=== PATIENT | female | born 1945 | race Caucasian/White ===

== ENCOUNTER 2017-09-03 13:31 | Inpatient (IN) | payer OTHER ==
--- NOTE | 2017-09-03 13:40 | EDPHY ---
H & P Stated Complaint: HR 170 during cardiac rehab Time Seen by Provider: 09/03/17 13:40 - Personal History Current Tetanus Diphtheria and Acellular Pertussis (TDAP): Yes Tetanus Vaccine Date: 2006 - Medical/Surgical History Hx Asthma: No Hx Chronic Respiratory Disease: Yes Hx Diabetes: No Hx Cardiac Disease: Yes Hx Renal Disease: No Hx Cirrhosis: No Hx Alcoholism: No Hx HIV/AIDS: No Hx Splenectomy or Spleen Trauma: No Other PMH: medical: microscopic colitis, arthritis, HTN, neuropathy. sugery: hyterectomy BOWEL RESECTION/ r abd hernia/htn - Social History Smoking Status: Heavy smoker Constitutional: Initial Vital Signs Temperature (C) 36.5 C 09/03/17 13:33 Heart Rate 173 H 09/03/17 13:33 Respiratory Rate 18 09/03/17 13:33 Blood Pressure 128/82 H 09/03/17 13:33 O2 Sat (%) 100 09/03/17 13:33 O2 Delivery Mode Nasal Cannula O2 (L/minute) 3 Allergies/Adverse Reactions: No Known Allergies Allergy (Verified 09/03/17 13:33) Home Medications: Medication Instructions Recorded Budesonide [Entocort Ec] 3 mg PO DAILY 09/21/13 Hydroxychloroquine Sulfate 200 mg PO BID 09/21/13 [Plaquenil 200 mg (RX)] Levalbuterol Inhaler [Xopenex Hfa 1 puffs IH BID PRN 09/21/13 Inhaler (RX)] Lisinopril [Zestril 10 mg (RX)] 10 mg PO HS 09/21/13 Meloxicam [Mobic] 15 mg PO DAILY 09/21/13 Multivitamins [Tab-A-Maikol] 1 tab PO DAILY 09/21/13 Tiotropium Inhaler [Spiriva 18 mcg IH DAILY 09/21/13 Inhaler] Hydrocodone/APAP 5/325 [[place] 1 tab PO Q4 PRN 09/25/13 5/325 (RX)] Acetaminophen [Tylenol Tablet] 500 mg PO Q6 PRN 12/12/14 Calcium Carbonate [Oyster Shell 500 mg PO DAILY 12/12/14 Calcium] Cholecalciferol Vit D3 [Vitamin D] 2,000 units PO DAILY 12/12/14 Ipratropium 0.03% Nasal [Atrovent 1 sprays [place] BID 12/12/14 0.03% Nasal] Levalbuterol 0.63 mg [Xopenex 1 vial IH BID 12/12/14 0.63MG Neb] Loperamide HCl [Imodium] 2 mg PO TID PRN 12/12/14 Medical Decision Making - Diagnostics Imaging: I viewed and interpreted images myself ED Course/Re-evaluation: CHIEF COMPLAINT: Rapid heart rate HISTORY OF PRESENT ILLNESS: The patient is a 71 y/o female arriving directly from pulmonary rehab with a heart rate above 170. Her medical history includes rheumatoid arthritis, hypertension, and emphysema. She does not believe she's had a rapid heart rate like this previously. While walking on the treadmill at rehab today they saw her heart rate jump to 170. She reported to rehab staff that she has been feeling poorly for a week, but denies palpitations, chest pain , acute dyspnea, lightheadedness, fever, or other symptoms. REVIEW OF SYSTEMS: A 10 point review of systems was performed and is negative with the exception of the elements mentioned in the history of present illness. PHYSICAL EXAM: HR, BP, O2 Sat, RR. Temp noted General Appearance: Alert, well hydrated, appropriate, and non-toxic appearing. Head: Atraumatic without scalp tenderness or obvious injury Eyes: Pupils equal, round, reactive to light and accommodation, EOMI, no trauma , no injection. Nose: Atraumatic, no rhinorrhea, clear. Throat: Mucus membranes moist. Neck: Supple, nontender, no lymphadenopathy. Respiratory: No retractions, no distress, no wheezes, and no accessory muscle use. Lungs are clear to auscultation bilaterally. Cardiovascular: Irregular rapid rate and rhythm, no murmurs, rubs, or gallops. Good capillary refill all extremities. Gastrointestinal: Abdomen is soft, nontender, non-distended, no masses, no rebound, no guarding, no peritoneal signs. Musculoskeletal: Normal active ROM of all extremities, atraumatic. Chronic venous stasis changes to both lower extremities. Neurological: Alert, appropriate, and interactive. The patient has non-focal cranial nerves, motor, sensory, and cerebellar exam. Skin: No rashes, good turgor, no nodules on palpation. Past medical history: Emphysema - O2 dependent, microscopic colitis, rheumatoid arthritis, hypertension, neuropathy. Past surgical history: Hysterectomy, bowel resection, right abdominal hernia, multiple tongue lesions excised for malignancy Family history: Noncontributory Social history: Prior smoker. Lives in [place]. Retired. DIAGNOSTICS/PROCEDURES/CRITICAL CARE TIME: The 12 lead EKG was interpreted by myself. Mix of rapid atrial fibrillation and atrial flutter. Rate between 140-170. See hard copy and/or "tracemaster" electronic copy for interpretation. Chest x-ray: hyperinflation consistent with COPD DIFFERENTIAL DIAGNOSIS: The differential diagnosis for the patient's narrow complex tachycardia included but was not limited to various causes of sinus tachycardia such as dehydration and medicines, SVT, atrial flutter, atrial fibrillation, pulmonary causes. MEDICAL DECISION MAKING: This is a 71 y/o female with emphysema who presents asymptomatic with a heart rate of 170. She has chronic venous stasis skin changes and rapid, irregular heart rate on exam. She is alert and oriented and normotensive. EKG shows a mix of rapid a-fib and a-flutter. Plan for IV, labs, chest x-ray, and medication treatment with 20mg IV Diltazem bolus followed by 20mg IV drip. Spoke with hospitalist service. Dr. Vyas accepts admission. 1416: Consulted with Dr. 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 Patient's aflutter has slowed to a rate around 80. - Data Points Laboratory Results: Laboratory Results 09/03/17 13:45 09/03/17 13:45 09/03/17 09/03/17 13:45 13:45 WBC 9.55 10^3/uL H 10^3/uL (3.80-9.50) RBC 3.47 10^6/uL L 10^6/uL (4.18-5.33) Hgb 13.2 g/dL g/dL (12.6-16.3) Hct 37.1 % L % (38.0-47.0) MCV 106.9 fL H fL (81.5-99.8) MCH 38.0 pg H pg (27.9-34.1) MCHC 35.6 g/dL g/dL (32.4-36.7) RDW 12.1 % % (11.5-15.2) Plt Count 213 10^3/uL 10^3/uL (150-400) MPV 8.8 fL fL (8.7-11.7) Neut % (Auto) 81.9 % H % (39.3-74.2) Lymph % (Auto) 5.7 % L % (15.0-45.0) [place] % (Auto) 10.1 % % (4.5-13.0) Eos % (Auto) 1.3 % % (0.6-7.6) Baso % (Auto) 0.8 % % (0.3-1.7) Nucleat RBC Rel Count 0.0 % % (0.0-0.2) Absolute Neuts (auto) 7.83 10^3/uL H 10^3/uL (1.70-6.50) Absolute Lymphs (auto) 0.54 10^3/uL L 10^3/uL (1.00-3.00) Absolute Monos (auto) 0.96 10^3/uL H 10^3/uL (0.30-0.80) Absolute Eos (auto) 0.12 10^3/uL 10^3/uL (0.03-0.40) Absolute Basos (auto) 0.08 10^3/uL 10^3/uL (0.02-0.10) Absolute Nucleated RBC 0.00 10^3/uL 10^3/uL (0-0.01) Immature Gran % 0.2 % % (0.0-1.1) Immature Gran # 0.02 10^3/uL 10^3/uL (0.00-0.10) Sodium 128 mEq/L L mEq/L (134-144) Potassium 4.5 mEq/L mEq/L (3.5-5.2) Chloride 91 mEq/L L mEq/L (97-110) Carbon Dioxide 24 mEq/l mEq/l (22-31) Anion Gap 13 mEq/L mEq/L (8-16) BUN 11 mg/dL mg/dL (7-23) Creatinine 0.6 mg/dL mg/dL (0.6-1.0) Estimated GFR > 60 Glucose 98 mg/dL mg/dL (70-100) Calcium 9.5 mg/dL mg/dL (8.5-10.4) Magnesium 1.6 mg/dL mg/dL (1.6-2.3) Troponin I Pending NT-Pro-B Natriuret Pep Pending TSH Pending Medications Given: Discontinued Medications Diltiazem HCl (Cardizem 25 Mg/5 Ml Vial) 20 mg IVP EDNOW ONE Stop: 09/03/17 13:49 Last Admin: 09/03/17 13:53 Dose: 20 mg Diltiazem HCl 125 mg/ Dextrose 125 mls @ 0 mls/hr IV EDNOW ONE; As Directed PRN Reason: Protocol Stop: 09/03/17 13:49 Last Admin: 09/03/17 14:13 Dose: 125 mls Departure - Departure Disposition: [facility] Inpatient Acute Clinical Impression: Rapid atrial fibrillation Condition: Fair Report Scribed for: Donell Hopkins Report Scribed by: Azalea Ramon Date of Report: 09/03/17 Time of Report: 14:00
[2017-09-03] MEDS ORDERED: DILTIAZEM 125 MG in D5W 125 ML IV ONE (13:48)
[2017-09-03] MEDS ORDERED: DILTIAZEM 25 MG/5 ML VIAL IVP ONE (13:48)
--- NOTE | 2017-09-03 13:48 | CPEKG ---
Heart Rate: 135 RR Interval: 444 QRSD Interval: 96 QT Interval: 308 QTC Interval: 462 QRS [place]: 58 T Wave [place]: 73 EKG Severity - ABNORMAL ECG - EKG Impression: ATRIAL FIBRILLATION EKG Impression: ST ELEVATION SUGGESTS PERICARDITIS Electronically Signed By: Donell Hopkins 03-Sep-2017 19:48:46
[2017-09-03 13:58] LABS: % IMMATURE GRANULYOCYTES 0.2 % (0.0-1.1); ABSOLUTE IMMATURE GRANULOCYTES 0.02 10^3/uL (0.00-0.10); ADD DIFF? NO; ADD MORPH? NO; ADD SCAN? NO; ATYPICAL LYMPHOCYTE FLAG 10 (0-99); FRAGMENT RBC FLAG 0 (0-99); HEMATOCRIT 37.1 % (38.0-47.0); HEMOGLOBIN 13.2 g/dL (12.6-16.3); LEFT SHIFT FLG 0 (0-99); LIPEMIA HEMOLYSIS FLAG 90 (0-99); MEAN CELL HEMOGLOBIN CONCENTR. 35.6 g/dL (32.4-36.7); MEAN CELL VOLUME 106.9 fL (81.5-99.8); MEAN PLATELET VOLUME 8.8 fL (8.7-11.7); PLATELET CLUMPS FLAG 0 (0-99); PLATELET COUNT 213 10^3/uL (150-400); RED BLOOD CELL COUNT 3.47 10^6/uL (4.18-5.33); RED CELL DISTRIBUTION WIDTH 12.1 % (11.5-15.2)
[2017-09-03 14:10] LABS: ANION GAP 13 mEq/L (8-16); CALCIUM 9.5 mg/dL (8.5-10.4); CARBON DIOXIDE 24 mEq/l (22-31); CHLORIDE 91 mEq/L (97-110); CREATININE 0.6 mg/dL (0.6-1.0); GLOMERULAR FILTRATION RATE > 60; GLUCOSE 98 mg/dL (70-100); MAGNESIUM 1.6 mg/dL (1.6-2.3); POTASSIUM 4.5 mEq/L (3.5-5.2); SODIUM 128 mEq/L (134-144)
[2017-09-03 14:22] LABS: TROPONIN I 0.168 ng/mL (0.000-0.034)
[2017-09-03] MEDS ORDERED: NS 1,000 ML IV ONE (14:44)
[2017-09-03] MEDS ORDERED: ONDANSETRON DISINTEGRATING 4 MG TAB PO PRN (14:44)
[2017-09-03] MEDS ORDERED: ACETAMINOPHEN 325 MG TAB PO PRN (14:44)
[2017-09-03] MEDS ORDERED: ONDANSETRON 4 MG/2 ML VIAL IVP PRN (14:44)
[2017-09-03] MEDS ORDERED: chlordiazePOXIDE 25 MG CAP PO ONE (14:48)
[2017-09-03] MEDS ORDERED: LORazepam 2 MG/ML INJ IVP PRN (14:48)
[2017-09-03] MEDS ORDERED: DILTIAZEM 125 MG in D5W 125 ML IV SCH (15:00)
[2017-09-03] MEDS ORDERED: NS 500 ML IV ONE (15:30)
[2017-09-03] MEDS ORDERED: ALBUTEROL 3 ML DEYVIAL IH PRN (15:48)
[2017-09-03] MEDS ORDERED: BEER 1 EACH EA PO SCH (16:00)
--- NOTE | 2017-09-03 16:26 | GHP ---
[f rep st] HISTORY AND PHYSICAL DATE OF ADMISSION: 09/03/2017 CHIEF COMPLAINT: Rapid heart rate. HISTORY OF PRESENT ILLNESS: A 71-year-old female with advanced chronic obstructive pulmonary disease , oxygen dependent, who was at her pulmonary rehabilitation appointment today and was found to have a heart rate in the 180s to 190s. The patient was transferred from pulmonary rehabilitation to the ergency department for evaluation. In the emergency department, the patient was found to be in atrial fibrillation. She was stabilized and transferred to the PCU for care. In the PCU the patient reports in the last couple weeks she has had many episodes where she was more fatigue d than she should be baseline from her accustomed level of activity. She denies any clear sensation of palpitations currently or previously. She has a very limited exertional capacity and is on contin uous oxygen. She currently denies any chest pain or history of chest pain. She denies any pleuritic chest pain. She denies any changes in her bowel habits. She is chronically struggling with diarrhe a for which she receives outpatient treatment. She denies any dysuria or hematuria. She denies any known sick contacts. PAST MEDICAL HISTORY: 1. Advanced COPD, oxygen dependent. 2. 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 3. Hypertension. 4. Arthritis. 5. Neuropathy. 6. Alcohol abuse. 7. Tobacco dependence. 8. Chronic hyponatremia. SOCIAL HISTORY: The patient smokes a pack a day. She drinks a 6-pack of beer a day. She denies ill icit drugs or marijuana. FAMILY HISTORY: Negative for heart disease. REVIEW OF SYSTEMS: A 10-point review of systems is negative with the exception of that reported in t he HPI. ADVANCED DIRECTIVES: The patient is do not resuscitate. PHYSICAL EXAMINATION: VITAL SIGNS: Blood pressure is 128/82, heart rate 173, respiratory rate 18, s aturating 100% on 3 L, and temperature 36.5. GENERAL: This is a cachectic-appearing female in no ac [place] distress. HEENT: Notable for dry mucous membranes. Eye exam is negative for any icterus. CARD IAC: The patient is tachycardic and irregular. PULMONARY: Limited air movement. No wheezing is ap preciated. GASTROINTESTINAL: Positive bowel sounds. ABDOMEN: Soft and nontender. MUSCULOSKELETAL: Negative for any lower extremity edema. SKIN: Exam is notable for marked ecchymoses on her upper and lower extremities. NEUROLOGIC: She is alert and oriented x3. PSYCHIATRIC: She is cooperative on interview and examination. LABORATORY DATA: Sodium 128, creatinine 0.6, white count 9.5, hematocrit 37.1, MCV 106, platelet cou nt 213, troponin 0.16, BNP of 3930. IMAGING STUDIES: Chest x-ray, which I personally reviewed and interpreted shows hyperinflation. No clear infiltrates or edema. EKG which I personally reviewed and interpreted, shows atrial flutter without clear acute ST-T change s. ASSESSMENT AND PLAN: This is a 71-year-old female with advanced chronic obstructive pulmonary diseas e who presents with tachycardia. 1. Acute atrial fibrillation/atrial flutter. The patient is maintaining her blood pressures and has been initiated on an intravenous diltiazem drip with rate control improvement. The patient will be admitted to the PCU. I have ordered a TSH, transthoracic echocardiogram. I made the patient n.p.o. after midnight in case she requires cardioversion in the morning. 2. Indeterminant troponin. Suspect this is likely related to the episode of severe tachycardia and indication of cardiac demand ischemia. We will check another troponin this evening. I have discusse d the case with Dr. Jules who will consult. Suspect we will need to perform some sort of risk stratif ication prior to the patient's disposition. Again I have made the patient n.p.o. in case her troponi n bumps this evening. 3. Hypertension. The patient's blood pressures remain stable. We will continue to monitor on the d iltiazem drip and home medications. 4. Alcohol abuse. The patient drinks 6 or more drinks a day and has no interest in discussing cessa tion. We will write for beers this evening. 5. Tobacco abuse. I have written for a nicotine patch. 6. Prophylaxis with Lovenox. 7. Diet: Cardiac and n.p.o. after midnight. DISPOSITION: Expecting greater than 2 midnights, as the patient is presenting with a dangerous dysrh ythmia and elevated troponin. Both will require additional diagnostics and care. I have discussed t he case with Dr. Jules from Cardiology. He will consult and leave recommendations related to the judith ent's atrial dysrhythmia and indeterminant troponin. /[id number]/MODL
[2017-09-03] MEDS: NICOTINE 21 MG/24 HR PATCH TD SCH (16:39)
[2017-09-03] MEDS ORDERED: ENOXAPARIN 60 MG/0.6 ML SYR SC SCH (17:00)
[2017-09-03] MEDS: LEVALBUTEROL 0.63 MG/3 ML DEYVIAL IH SCH ×2 (17:02→22:41)
[2017-09-03] MEDS: ENOXAPARIN 60 MG/0.6 ML SYR SC SCH (19:17)
--- NOTE | 2017-09-03 20:08 | GCON ---
[f rep st] CONSULTATION CARDIAC CONSULTATION. DATE OF CONSULTATION: 09/03/2017 CHIEF COMPLAINT: Exercise intolerance. HISTORY OF PRESENT ILLNESS: The patient is a 71-year-old female with a history of COPD, who presente d to the hospital with newly diagnosed atrial flutter with rapid ventricular rates. She has been par ticipating in pulmonary rehab, and earlier today, her heart rate was noted to be 170 beats per minute while exercising. She was asymptomatic, denying any chest discomfort, shortness of breath, or palpi tations. She has noted over the last 2 weeks that her exercise tolerance has decreased while partici pating in pulmonary rehab. On admission to the hospital, she was found to be in atrial flutter with a heart rate of 170 beats per minute. She was given a diltiazem bolus with improvement in her rates to 80-100 beats per minute. PAST MEDICAL HISTORY: Hypertension, ongoing tobacco use, colitis, rheumatoid arthritis, emphysema, n europathy. PAST SURGICAL HISTORY: Abdominal hernia repair, hysterectomy. SOCIAL HISTORY: She is currently accompanied by her niece. She has a history of ongoing tobacco use , smoking about a pack a day. She also has a history of significant alcohol use, drinking at least 6 beers a day. REVIEW OF SYSTEMS: Negative except for what is stated in H and P. HOME MEDICATIONS: Meloxicam 15 mg daily, Plaquenil 200 mg daily, Entocort 3 mg daily, Xopenex inhale r b.i.d., Zestril 10 mg daily, vitamin D3 at 2000 units daily, calcium daily, Symbicort b.i.d., albut nuha p.r.n., Mucinex b.i.d., Tylenol p.r.n., Spiriva daily, multivitamin daily. ALLERGIES: No known drug allergies. PHYSICAL EXAMINATION: GENERAL: The patient appears in no acute distress. VITALS: Blood pressure 1 23/73, heart rate 95, oxygen saturation of 99% on 3 L, afebrile. NECK: No carotid bruits or JVD pre sent. LUNGS: Decreased air movement bilaterally with mild wheezing. CARDIAC: Irregular rate and r hythm without any significant murmurs, rubs, or gallops appreciated. ABDOMEN: Soft, nontender, nond istended. Bowel sounds present. EXTREMITIES: Palpable pulses bilaterally without any evidence of e rossy. NEUROLOGIC: Nonfocal. PSYCHIATRIC: Mood and affect appropriate. SKIN: Skin tear present o n her left lower leg. She does have chronic discoloring consistent with bruising of the arms. LABORATORIES: Troponin 0.168. BNP 3930. TSH 2.5. Sodium 128, potassium 4.5, chloride 91, BUN 11, creatinine 0.6. ASSESSMENT: The patient is a 71-year-old female with a history of chronic obstructive pulmonary dise ase, who presents with newly diagnosed atrial flutter with rapid ventricular rate. The patient presents today with newly diagnosed atrial flutter with rapid ventricular rates of 170 be ats per minute. She has been given diltiazem, and her rates are currently down to 80-100 beats per m inute. She is currently asymptomatic, aside from complaining of some exercise intolerance over the l ast 2 weeks. She denies any palpitations, lightheadedness, dizziness, chest discomfort or significan t shortness of breath. She will remain on diltiazem drip throughout the night. If she remains in at rial fibrillation tomorrow morning, options include a transesophageal echocardiography cardioversion versus rate control with p.o. diltiazem. Her CHADS2-VASc score is currently 3. Full-dose anticoagul ation was discussed with her today. She is very hesitant to be placed on any of these medications an d will think about it over the next 12 hours. I do think it would be reasonable to increase her Love nox to therapeutic dosing. An echocardiogram is currently pending to assess her ejection fraction, a s well as for pulmonary hypertension in the setting of chronic obstructive pulmonary disease and ongo ing tobacco use. She also is a heavy alcohol drinker. We did discuss this as a potential cause for atrial flutter. I have recommended she stop alcohol and tobacco use. Her troponin is mildly elevated. She denies any chest discomfort. I will continue to track her trop onins. I do think her elevation in troponin is related to atrial flutter with rapid ventricular rate s. /[id number]/MODL
[2017-09-03] MEDS ORDERED: LEVALBUTEROL INHALER 200 PUFFS/15 GM MDI IH SCH (21:00)
[2017-09-03] MEDS ORDERED: BUDESONIDE/FORMOTEROL 160/4.5 60 PUFFS/MDI IH SCH (21:00)
[2017-09-03] MEDS ORDERED: LISINOPRIL 10 MG TAB PO SCH (21:00)
[2017-09-03] MEDS: guaiFENesin 600 MG TAB.ER PO SCH (21:56)
[2017-09-03] MEDS: [UNRECOGNIZED DRUG - OTHER] IH SCH (22:40)
[2017-09-03] MEDS: FORMOTEROL IH SCH (22:40)
[2017-09-03] MEDS: BUDESONIDE IH SCH (22:40)
[2017-09-04] MEDS: ENOXAPARIN 60 MG/0.6 ML SYR SC SCH (05:17)
[2017-09-04 07:45] LABS: % IMMATURE GRANULYOCYTES 0.2 % (0.0-1.1); ABSOLUTE IMMATURE GRANULOCYTES 0.01 10^3/uL (0.00-0.10); ADD DIFF? NO; ADD MORPH? NO; ADD SCAN? NO; ATYPICAL LYMPHOCYTE FLAG 30 (0-99); FRAGMENT RBC FLAG 0 (0-99); HEMATOCRIT 32.2 % (38.0-47.0); HEMOGLOBIN 11.5 g/dL (12.6-16.3); LEFT SHIFT FLG 0 (0-99); LIPEMIA HEMOLYSIS FLAG 90 (0-99); MEAN CELL HEMOGLOBIN 38.1 pg (27.9-34.1); MEAN CELL HEMOGLOBIN CONCENTR. 35.7 g/dL (32.4-36.7); MEAN CELL VOLUME 106.6 fL (81.5-99.8); MEAN PLATELET VOLUME 8.4 fL (8.7-11.7); PLATELET CLUMPS FLAG 0 (0-99); PLATELET COUNT 166 10^3/uL (150-400); RED BLOOD CELL COUNT 3.02 10^6/uL (4.18-5.33); RED CELL DISTRIBUTION WIDTH 12.3 % (11.5-15.2)
[2017-09-04 08:07] LABS: ANION GAP 9 mEq/L (8-16); CALCIUM 8.5 mg/dL (8.5-10.4); CARBON DIOXIDE 23 mEq/l (22-31); CHLORIDE 99 mEq/L (97-110); CREATININE 0.5 mg/dL (0.6-1.0); GLOMERULAR FILTRATION RATE > 60; GLUCOSE 86 mg/dL (70-100); MAGNESIUM 1.7 mg/dL (1.6-2.3); POTASSIUM 4.4 mEq/L (3.5-5.2); SODIUM 131 mEq/L (134-144)
[2017-09-04] MEDS ORDERED: MULTIVITAMINS 1 EACH TAB PO SCH (09:00)
[2017-09-04] MEDS ORDERED: TIOTROPIUM INHALER 18 MCG/DOSE 5 DOSE/MDI IH SCH (09:00)
[2017-09-04] MEDS ORDERED: Meloxicam [Mobic] 15 MG PO SCH (09:00)
[2017-09-04] MEDS ORDERED: CHOLECALCIFEROL VIT D3 1,000 UNITS TAB PO SCH (09:00)
[2017-09-04] MEDS ORDERED: ENOXAPARIN 40 MG/0.4 ML SYR SC SCH (09:00)
[2017-09-04] MEDS ORDERED: CALCIUM CARBONATE 500 MG TAB PO SCH (09:00)
[2017-09-04] MEDS ORDERED: BUDESONIDE 3 MG EC CAP PO SCH (09:00)
[2017-09-04] MEDS ORDERED: MELOXICAM 15 MG PO SCH (09:00)
[2017-09-04] MEDS ORDERED: HYDROXYCHLOROQUINE SULFATE 200 MG TAB PO SCH (09:00)
[2017-09-04] MEDS ORDERED: MIDAZOLAM 2 MG/2 ML VIAL IVP ONE (09:45)
[2017-09-04] MEDS ORDERED: fentaNYL 100 MCG/2 ML INJ IVP ONE (09:45)
[2017-09-04] MEDS ORDERED: ATROPINE SULFATE 1 MG/10 ML SYR IVP ONE (09:45)
[2017-09-04] MEDS ORDERED: BENZOCAINE UNIT DOSE SPRAY HURRICAINE MM ONE (09:45)
[2017-09-04] MEDS ORDERED: NS 500 ML IV ONE (09:45)
--- NOTE | 2017-09-04 09:54 | PDCARPN ---
Cardiology Progress Note Chief Complaint: SOB Assessment/Plan: Assessment: The patient is a 71 y/o F with a history of COPD, ongoing tobacco use, and ETOH abuse who presented with new onset atrial flutter with RVR. She was at cardiac rehab when she noticed her heart rate to be elevated. In the ER she was found to be in atrial flutter with a rate of 170 BPM. Her only complaint has been LIND and exercise intolerance over the past two weeks. Plan: atrial flutter- plan for KRISTEN CV at noon today. R/B/A discussed and she would like to proceed. She will need to remain on full dose anticoagulation for at least one month. She has agreed to take Eliquis 5mg BID. She will also need to be d/c home on dilt for rate control. She understands that she is at increased risk of recurrent a.fib/flutter if she continues to drink. minimally elevated trop without angina. likely related to a.fib with RVR. Consider outpatient nuc. 09/04/17 09:55 Subjective: No complains. She denies any CP, SOB, or palpitations. Objective: Vital Signs (8 Hrs) Temp Pulse Resp BP Pulse Ox 09/04/17 07:49 36.1 C 92 15 121/85 H 96 09/04/17 03:26 36.3 C 84 19 100/76 99 Intake/Output (24 Hrs) 09/03/17 09/04/17 09/05/17 05:59 05:59 05:59 Intake Total 1555 Output Total 1000 Balance 555 Intake: Oral (ml) 950 IV Intake (ml) 20 IV Infused (ml) 585 Diltiazem 125 mg In D5w 85 125 ml @ Per Protocol IV CONT TONYA Rx#:[id number] Ns 500 ml @ As Directed 500 IV ONCE ONE Rx#: [id number] Output: Urine (ml) 1000 Toilet 1000 Other: Weight 47.627 kg tele-atrial flutter Result Diagrams: 09/04/17 07:37 09/04/17 07:37 Cardiac Labs: Cardiac Lab Results (72 Hrs) 09/03/17 09/03/17 22:05 19:57 Troponin I 0.190 H REJ - Physical Exam Constitutional: WDWN Cardiovascular: irregularly irregular Respiratory: clear to auscultate bilat, no crackles, no wheezes, other (poor air movement) ICD10 Worksheet Patient Problems: Problems Problem Status Onset Rapid atrial fibrillation Acute Volvulus Acute
--- NOTE | 2017-09-04 10:14 | CPEKG ---
Heart Rate: 83 RR Interval: 723 QRSD Interval: 90 QT Interval: 372 QTC Interval: 437 QRS [place]: 73 T Wave [place]: 66 EKG Severity - ABNORMAL ECG - EKG Impression: ATRIAL FLUTTER EKG Impression: ST ELEVATION SUGGESTS PERICARDITIS EKG Impression: COMPARED WITH 09/03/2017 AT 1:45 P.M., NO SIGNIFICANT CHANGE Electronically Signed By: Cassandra Oropeza 04-Sep-2017 15:40:29
[2017-09-04] MEDS: FORMOTEROL IH SCH (10:31)
[2017-09-04] MEDS: BUDESONIDE IH SCH (10:31)
[2017-09-04] MEDS: [UNRECOGNIZED DRUG - OTHER] IH SCH (10:32)
[2017-09-04] MEDS: LEVALBUTEROL 0.63 MG/3 ML DEYVIAL IH SCH (10:33)
--- NOTE | 2017-09-04 10:56 | WOCRNPDOC ---
WOCRN Advanced Assessment Note - Skin Integrity Problem, Advanced Assess Left Anterior Lower Leg Dressing Type: Allevyn Life Closure Description: Steri Strips Exudate Amount: Scant Exudate Characteristic(s): Serosanguinous Skin Integrity Problem Comment: Healing skin tear. No intervention necessary. Keep covered for protection with Allevyn life. Apply skin repair cream to bilateral lower legs and feet BID for moisture. Wound care will sign off.
[2017-09-04 11:10] VITALS: BP 121/72; PULSE 78; RESP 20; TEMP 98.9; O2SAT 98
[2017-09-04] MEDS: guaiFENesin 600 MG TAB.ER PO SCH (11:17)
[2017-09-04 11:46] LABS: APTT 33.4 SEC (23.0-38.0); INR 1.07 (0.83-1.16); PROTIME(PATIENT) 14.1 SEC (12.0-15.0)
[2017-09-04] MEDS ORDERED: PROPOFOL 200 MG/20 ML VIAL ONE ×2 (13:03)
--- NOTE | 2017-09-04 13:03 | PDANEPAE ---
ANE History of Present Illness a fib ANE Past Medical History - Cardiovascular History Hx Hypertension: Yes Hx Arrhythmias: No Hx Chest Pain: No Hx Coronary Artery / Peripheral Vascular Disease: No Hx CHF / Valvular Disease: No Hx Palpitations: No - Pulmonary History Hx COPD: Yes Hx Asthma/Reactive Airway Disease: No Hx Recent Upper Respiratory Infection: No Hx Oxygen in Use at Home: Yes O2 in Use at Home (L/minute): 3 Hx Sleep Apnea: No - Neurologic History Hx Cerebrovascular Accident: No Hx Seizures: No Hx Dementia: No Neurologic History Comment: PETER - Endocrine History Hx Diabetes: No - Renal History Hx Renal Disorders: No - Liver History Hx Hepatic Disorders: No - Neurological & Psychiatric Hx Hx Neurological and Psychiatric Disorders: No Neurological / Psychiatric History Comment: PT CONSUMES 6 BEER/DAY - Cancer History Hx Cancer: Yes Cancer History Comment: CERVICAL CANCER 1984 - Congenital Disorder History Hx Congenital Disorders: No - GI History Hx Gastrointestinal Disorders: No Gastrointestinal History Comment: HX COLON BLOCKAGE. MICROSCOPIC COLITIS - Other Health History Other Health History: BRUISE EASILY. OSTEOARTHRITIS. RHEUMATOID ARTHRITIS. PERIPHERAL NEUROPATHY. BRIDGE - Chronic Pain History Chronic Pain: No - Surgical History Prior Surgeries: GASTRIC SUCTION 12/2013. EXPLORATORY LAPAROTOMY WITH R COLECTOMY09/2013. TONGUE LESION EXCISION 12/2010. HYST CERV CANCER 1984 ANE Review of Systems Review of Systems: ANE Patient History - Allergies Allergies/Adverse Reactions: No Known Allergies Allergy (Verified 09/03/17 13:33) - Home Medications Home Medications: Budesonide [Entocort Ec] 3 mg PO DAILY 09/21/13 [Last Taken 09/03/17] Hydroxychloroquine Sulfate [Plaquenil 200 mg (RX)] 200 mg PO DAILY 09/21/13 [ Last Taken 09/03/17] Lisinopril [Zestril 10 mg (RX)] 10 mg PO HS 09/21/13 [Last Taken 09/02/17] Meloxicam [Mobic] 15 mg PO DAILY 09/21/13 [Last Taken 09/03/17] Calcium Carbonate [Oyster Shell Calcium] 500 mg PO DAILY 12/12/14 [Last Taken ] Cholecalciferol Vit D3 [Vitamin D] 2,000 units PO DAILY 12/12/14 [Last Taken ] Levalbuterol 0.63 mg [Xopenex 0.63MG Neb] 1 vial IH TID 12/12/14 [Last Taken ] Acetaminophen [Tylenol ES 500 mg (*)] 500 mg PO DAILY PRN 09/03/17 [Last Taken Unknown] Albuterol [Proventil Neb] 3 ml IH TID PRN 09/03/17 [Last Taken Unknown] Foracort 200 2 puffs IH BID 09/03/17 [Last Taken Unknown] Levosalbutamol 50mcg 1 puffs IH BID 09/03/17 [Last Taken Unknown] Multivitamins [Multivitamin (*)] 1 each PO DAILY 09/03/17 [Last Taken Unknown] Tiotropium Inhaler [Spiriva Inhaler] 1 inh IH DAILY 09/03/17 [Last Taken ] guaiFENesin [Mucinex 600 MG (*)] 600 mg PO BID 09/03/17 [Last Taken 09/03/17] - Smoking Hx Smoking Status: Heavy smoker - Family Anes Hx Family Hx Anesthesia Complications: NONE ANE Labs/Vital Signs - Labs Result Diagrams: 09/04/17 07:37 09/04/17 07:37 - Vital Signs Blood Pressure: 121/72 Heart Rate: 78 Respiratory Rate: 20 O2 Sat (%): 98 Height: 165.1 cm Weight: 47.627 kg ANE Physical Exam - Airway Neck exam: FROM Mallampati Score: Class 1 Mouth exam: dentures - Pulmonary Pulmonary: no respiratory distress - Cardiovascular Cardiovascular: regular rate and rhythym - ASA Status ASA Status: III ANE Anesthesia Plan Total IV Anesthesia: Yes
--- NOTE | 2017-09-04 13:32 | POSTANESTH ---
Post Anesthetic Evaluation Cardiovascular Status: Normal, Stable Respiratory Status: Normal, Stable Level of Consciousness/Mental Status: Can Participate in Eval Pain Control: Adequate, Prn Tx Ordered Nausea/Vomiting Control: Adequate, Prn Tx Ordered Complications Possibly Related to Anesthesia: None Noted
--- NOTE | 2017-09-04 13:33 | EPPROC ---
Electrophysiology Procedure Note: Procedure: DCCV Indication: Symptomatic AF Procedure: Pt sedated. Very difficult KRISTEN due to respiratory issues. KRISTEN ruled out LA clot. Pt underwent 200J of synchronized DCCV. Pt successfully converted to SR. Conclusion: Successful CV. Patient Problems: Problems Problem Status Onset Rapid atrial fibrillation Acute Volvulus Acute
--- NOTE | 2017-09-04 13:38 | CPEKG ---
Heart Rate: 89 RR Interval: 674 P-R Interval: 160 QRSD Interval: 74 QT Interval: 428 QTC Interval: 521 P [place]: 84 QRS [place]: 57 T Wave [place]: 60 EKG Severity - ABNORMAL ECG - EKG Impression: SINUS RHYTHM EKG Impression: SUPRAVENTRICULAR BIGEMINY EKG Impression: COMPARED WITH 09/04/2017 AT 10:13 A.M., SINUS RHYTHM HAS REPLACED ATRIAL EKG Impression: FIBRILLATION Electronically Signed By: Cassandra Oropeza 04-Sep-2017 15:39:15
--- NOTE | 2017-09-04 13:44 | PDMN ---
Medical Necessity Medical necessity: est los>2mn for acute afib/flutter, and indeterminate troponin; admit to PCU for dilt gtt, further w/u for dangerous dysrhythmia and elevated troponin; comorbid COPD, HTN, and etoh abuse; per order and H&P
[2017-09-04] MEDS: NICOTINE 21 MG/24 HR PATCH TD SCH (15:10)
--- NOTE | 2017-09-04 18:17 | ECHO ---
[email or web address] [address] Main: [phone] Fax: Transthoracic Echocardiogram Name: RISSA GARCIA MR#: [id number] Study Date: 09/04/2017 Study Time: 08:14 AM Date of : 1945 Age: 71 year(s) Height: 165.1 cm (65 in.) Weight: 47.63 kg (105 lb.) BSA: 1.5 m2 Gender: Female Examination: Echo Indication: New atrial fib/flutter Image Quality: Contrast: Requested by: Lucinda Padilla BP: 121 mmHg/85 mmHg Heart Rate: Rhythm: Indication: New atrial fib/flutter Procedure Staff Architectural Associate: Frida Owens Reading Physician: Jesse Jules Requesting Provider: Conclusions: Normal size left ventricle. Mild concentric LV hypertrophy. The ejection fraction is estimated to be 65-70 %. Diastolic dysfunction is present. . The left atrium is mildly dilated. The right atrium is mildly dilated. Mild tricuspid regurgitation is present. The pulmonary artery pressure is moderately increased. RVSP is 46-51mmHG.. No pericardial effusion. Measurements: Chambers Valvular Assessment AV/MV Valvular Assessment TV/PV Normal Normal Normal Name Value Range Name Value Range Name Value Range Ao Kaycee (MM): 2.8 cm (2.2 cm-3.7 AV meanP mmHg ( - ) TR Vmax: 3.20 mm/s ( - ) cm) MV E Vmax: 1.15 m/s ( - ) TR PGmax: 41 mmHg ( - ) IVSd (2D): 1.0 cm (0.6 cm-1.1 syst. PAP: 46 mmHg ( - ) cm) LVDd (2D): 3.7 cm (3.9 cm-5.3 cm) LVDs (2D): 2.2 cm (2.1 cm-4 cm) LVPWd (2D): 1.2 cm ( - ) LVEF (MOD4): 71 % (>=55 %) EF Range: 65-70 % Continued Measurements: Chambers Valvular Assessment AV/MV Valvular Assessment TV/PV Patient: RISSA GARCIA Study Date: 09/04/2017 Page 1 of 2 08:14 AM Name Value Name Value Name Value LADs: 3.7 cm MV E' Septal: 0.03 m/s CVP (est.): 5 mmHg LADs Lon.7 cm MV E/E' Septal: 43.70 LA Area: 21.7 cm2 MV E/E' Lateral: 26.20 Findings: Left Ventricle: Normal size left ventricle. Mild concentric LV hypertrophy. Normal global systolic LV function. The ejection fraction is estimated to be 65-70 %. No regional wall motion abnormality. Diastolic dysfunction is present. . Right Ventricle: Normal size right ventricle. Normal RV function. Left Atrium: The left atrium is mildly dilated. Right Atrium: The right atrium is mildly dilated. Mitral Valve: The mitral valve is normal in appearance and function. Trivial mitral valve regurgitation. Aortic Valve: The aortic valve is normal in appearance and function. Aortic sclerosis is present. Tricuspid Valve: The tricuspid valve is normal in appearance and function. Mild tricuspid regurgitation is present. The pulmonary artery pressure is moderately increased. RVSP is 46-51mmHG.. Pulmonic Valve: The pulmonic valve is normal in appearance and function. Aorta: The aorta is normal. Pericardium: No pericardial effusion. (No Signature Object) Patient: RISSA GARCIA Study Date: 09/04/2017 Page 2 of 2 08:14 AM [id number]
--- NOTE | 2017-09-05 02:18 | GDS ---
[f rep st] DISCHARGE SUMMARY DISCHARGE DIAGNOSES: 1. Atrial fibrillation with rapid ventricular response. 2. Advanced chronic obstructive pulmonary disease, oxygen dependent. 3. 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 4. Hypertension. 5. Arthritis. 6. Neuropathy. 7. Alcohol abuse. 8. Tobacco dependence. 9. Chronic hyponatremia. HISTORY OF PRESENT ILLNESS: A 71-year-old female with advanced chronic obstructive pulmonary disease , who presents from Pulmonary Rehab with a heart rate in the 190s. For details of patient's initial presentation, please see the history and physical dated 09/03/2017. CONSULTATIVE SERVICES: Include Cardiology. PROCEDURES: Cardioversion, which was performed on 09/04/2017. HOSPITAL COURSE: By issue: 1. Atrial fibrillation with rapid ventricular response. The patient remained hemodynamically stable with heart rates in the 180s to 190s, was admitted, initiated on anticoagulation, as well as a dilti azem drip. Patient had improved heart rates morning after hospitalization but continued to be in atr ial fibrillation. She was taken to the [facility] lab for cardioversion and was successfully converted with out complication. She is being discharged on Eliquis, long-acting diltiazem, and outpatient cardiolo gy followup. 2. Indeterminate troponin. This was likely demand ischemia related to her rapid heart rates. John nt's troponin overnight was 0.19. No risk stratification was performed during this hospital stay. T he patient will follow in the outpatient setting with cardiology. MEDICATIONS: At the time of disposition, please reference the med rec printed on 09/04/2017. PENDING STUDIES: At the time of this dictation are none. FOLLOWUP: Include with Sol Ruggiero in the next 7-10 days for post cardioversion followup and her f irst assessment outpatient of her atrial fibrillation. I spent greater than 30 minutes in the planning and coordination of this discharge. /[id number]/MODL
--- NOTE | 2017-09-05 15:08 | ASDISCHSUM ---
Discharge Information Plan Status:Home with No Needs Medically Cleared to Leave:09/03/2017 Discharge Date:09/04/2017 03:22 PM D/C Disposition: ADT D/C Disposition:Home, Routine, Self-Care Projected Discharge Date:09/04/2017 12:00 AM Transportation at D/C: Discharge Delay Reason: Follow-Up Date:09/04/2017 12:00 AM Discharge Slot: Final Diagnosis: Placement Information Patient Contact Information Contact Name:MARCIAL Relationship:Sister Address: City:[place] Alternate Phone: [facility]/Zip Code:[place] Email: Financial Information Financial Class: Primary Plan Desc:MEDICARE INPATIENT Primary Plan Number:[id number] Secondary Plan Desc:[facility] Secondary Plan Number:[id number] Assessment Information Intervention Information
== END 2017-09-04 15:22 | disposition home or self-care (01) | DRG 309 ==
LOC: OBSVTOIN 14:44 → F2W 14:45 → UNDODISIN 09-04 11:58
PROVIDERS: ADMIT Internal Medicine; ATTEND Hospitalist
DX: I48.92 Unspecified atrial flutter (principal); I48.0 Paroxysmal atrial fibrillation; I24.8 Other forms of acute ischemic heart disease; J43.9 Emphysema, unspecified; Z99.81 Dependence on supplemental oxygen; E87.1 Hypo-osmolality and hyponatremia; F17.210 Nicotine dependence, cigarettes, uncomplicated; I10 Essential (primary) hypertension; M19.91 Primary osteoarthritis, unspecified site; G60.9 Hereditary and idiopathic neuropathy, unspecified; F10.10 Alcohol abuse, uncomplicated
CPT/HCPCS: J1650; J2060; J2704

== ENCOUNTER 2018-05-05 19:59 | Inpatient (IN) | payer OTHER ==
[2018-05-05 21:09] LABS: PLATELET COUNT 438 10^3/uL (150-400)
[2018-05-05 21:17] LABS: INR 2.94 (0.83-1.16); PROTIME(PATIENT) 30.5 SEC (12.0-15.0)
[2018-05-05] MEDS ORDERED: NS 1,000 ML IV SCH (21:30)
[2018-05-05] MEDS ORDERED: PROMETHAZINE HCL 25 MG/ML INJ IVP ONE (21:46)
[2018-05-05] MEDS ORDERED: HUMAN PROTHROMBIN COMPLX(PCC) 1 UNIT/0.04 ML VIAL IV ONE (22:32)
--- NOTE | 2018-05-05 22:32 | EDPHY ---
PELON Addendum - Addendum .: Patient was offered medical screening examination by myself but she declined. Dr. Edwards had called me prior to arrival, asked me to call him when she arrived. He came to the emergency department and primarily assumed and directed evaluation and care of the patient.
[2018-05-05] MEDS ORDERED: NS 1,000 ML IV ONE (22:34)
[2018-05-05] MEDS ORDERED: PROTHROMBIN COMPLEX CONCENTRATE IV ONE ×2 (23:15→23:45)
[2018-05-05] MEDS ORDERED: cefOXitin SODIUM 1 GM in NS 50 ML IV ONE (23:24)
--- NOTE | 2018-05-06 00:11 | PDANEPAE ---
ANE History of Present Illness small bowell obstruction ANE Past Medical History - Cardiovascular History Hx Hypertension: Yes Hx Arrhythmias: No Hx Chest Pain: No Hx Coronary Artery / Peripheral Vascular Disease: No Hx CHF / Valvular Disease: No Hx Palpitations: No - Pulmonary History Hx COPD: Yes Hx Asthma/Reactive Airway Disease: No Hx Recent Upper Respiratory Infection: No Hx Oxygen in Use at Home: Yes O2 in Use at Home (L/minute): 3 Hx Sleep Apnea: No - Neurologic History Hx Cerebrovascular Accident: No Hx Seizures: No Hx Dementia: No Neurologic History Comment: PETER - Endocrine History Hx Diabetes: No - Renal History Hx Renal Disorders: No - Liver History Hx Hepatic Disorders: No - Neurological & Psychiatric Hx Hx Neurological and Psychiatric Disorders: No Neurological / Psychiatric History Comment: PT CONSUMES 6 BEER/DAY - Cancer History Hx Cancer: Yes Cancer History Comment: CERVICAL CANCER 1984 - Congenital Disorder History Hx Congenital Disorders: No - GI History Hx Gastrointestinal Disorders: No Gastrointestinal History Comment: HX COLON BLOCKAGE. MICROSCOPIC COLITIS - Other Health History Other Health History: BRUISE EASILY. OSTEOARTHRITIS. RHEUMATOID ARTHRITIS. PERIPHERAL NEUROPATHY. BRIDGE - Chronic Pain History Chronic Pain: No - Surgical History Prior Surgeries: GASTRIC SUCTION 12/2013. EXPLORATORY LAPAROTOMY WITH R COLECTOMY09/2013. TONGUE LESION EXCISION 12/2010. HYST CERV CANCER 1984 ANE Review of Systems Review of Systems: ANE Patient History - Allergies Allergies/Adverse Reactions: No Known Allergies Allergy (Verified 09/03/17 13:33) - Home Medications Home Medications: Budesonide [Entocort EC] 3 mg PO DAILY 09/21/13 [Last Taken 09/03/17] Hydroxychloroquine Sulfate [Plaquenil 200 mg (*)] 200 mg PO DAILY 09/21/13 [ Last Taken 09/03/17] Lisinopril [Zestril 10 mg (*)] 10 mg PO HS 09/21/13 [Last Taken 09/02/17] Calcium Carbonate [Oyster Shell Calcium 500 mg (*)] 500 mg PO DAILY 12/12/14 [ Last Taken 12/09/14] Cholecalciferol Vit D3 [Vitamin D3 (*)] 2,000 units PO DAILY 12/12/14 [Last Taken 12/08/14] Levalbuterol 0.63 mg [Xopenex 0.63MG Neb (*)] 1 vial IH TID 12/12/14 [Last Taken 09/03/17] Acetaminophen [Tylenol ES 500 mg (*)] 500 mg PO DAILY PRN 09/03/17 [Last Taken Unknown] Albuterol [Proventil Neb] 3 ml IH TID PRN 09/03/17 [Last Taken Unknown] Foracort 200 2 puffs IH BID 09/03/17 [Last Taken Unknown] Levosalbutamol 50mcg 1 puffs IH BID 09/03/17 [Last Taken Unknown] Multivitamins [Multivitamin (*)] 1 each PO DAILY 09/03/17 [Last Taken Unknown] Tiotropium Inhaler [Spiriva Inhaler (RX)] 1 inh IH DAILY 09/03/17 [Last Taken ] guaiFENesin [Mucinex 600 MG (*)] 600 mg PO BID 09/03/17 [Last Taken 09/03/17] - NPO status NPO Since - Liquids (Date): 05/05/18 NPO Since - Liquids (Time): 20:30 NPO Since - Solids (Date): 05/05/18 NPO Since - Solids (Time): 13:00 - Smoking Hx Smoking Status: Heavy smoker - Family Anes Hx Family Hx Anesthesia Complications: NONE ANE Labs/Vital Signs - Labs Result Diagrams: 05/05/18 20:33 05/05/18 20:33 - Vital Signs Blood Pressure: 117/65 Heart Rate: 106 Respiratory Rate: 18 O2 Sat (%): 99 Height: 165.1 cm Weight: 45.5 kg ANE Physical Exam - Airway Neck exam: FROM Mallampati Score: Class 2 Mouth exam: normal dental/mouth exam - Pulmonary Pulmonary: reduced air movement, expiratory wheeze - Cardiovascular Cardiovascular: irregularly irregular - ASA Status ASA Status: IV, E ANE Anesthesia Plan Anesthesia Plan: general endotracheal anesthesia Lines/Monitors: arterial line
[2018-05-06] MEDS ORDERED: SUCCINYLCHOLINE CHLORIDE 200 MG/10 ML SYR IVP ONE (00:24)
[2018-05-06] MEDS ORDERED: ROCURONIUM 50 MG/5 ML VIAL ONE (00:24)
[2018-05-06] MEDS ORDERED: PHENYLEPHRINE HCL 100 MCG/ML SYR ONE (00:24)
[2018-05-06] MEDS ORDERED: fentaNYL 100 MCG/2 ML INJ ONE ×2 (00:24)
[2018-05-06] MEDS ORDERED: ePHEDrine SULFATE 25 MG/5 ML SYR ONE (00:24)
[2018-05-06] MEDS ORDERED: PROPOFOL 200 MG/20 ML VIAL ONE (00:24)
--- NOTE | 2018-05-06 00:25 | GHP ---
[f rep st] PREOP HISTORY AND PHYSICAL DATE OF ADMISSION: 05/05/2018 REASON FOR EVALUATION: Bowel obstruction. HISTORY OF PRESENT ILLNESS: 72-year-old female, well known to me, status post a right hemicolectomy for a cecal volvulus in 2013. She was readmitted in 2014 with a small-bowel obstruction, which resolved with conservative measures. She presents to the emergency room this evening. She had notified our service yesterday of worsening pain and concerns for possible left groin swelling. She was advised to come to the emergency room for further workup and declined. She was seen in the office earlier today and noted to have findings concerning for bowel obstruction and incarcerated hernia. She was hesitant to proceed with intervention. Worsening symptoms ensued throughout the day with progressive nausea, vomiting. Her last bowel movement was multiple days ago. She has not passed gas for couple of days. She has diffuse abdominal pain, worsened with movement. She has not eaten for approximately the past week. She did, significantly, complete a course of antibiotics for a left ankle infection status post Mohs procedure. PAST MEDICAL HISTORY: COPD, history of colitis, hypertension, atrial fibrillation. PAST SURGICAL HISTORY: Right hemicolectomy with lysis of adhesions. Hysterectomy. HOME MEDICATIONS: Albuterol, amitriptyline, Atrovent, calcium, diltiazem, Eliquis, Entocort, hydrochloroquine, lisinopril, Imodium, Mucinex, 3 L of oxygen at bedtime and p.r.n., Spiriva, Symbicort, vitamin D, Xopenex. No known drug allergies. SOCIAL HISTORY: Significant alcohol, 6-pack per day. Notable tobacco use, as well. FAMILY HISTORY: Noncontributory. REVIEW OF SYSTEMS: Notable for chronic respiratory and GI complaints as above. PHYSICAL EXAMINATION: VITAL SIGNS: Temperature 36.4, blood pressure 98/50, heart rate 105, respirations 16. GENERAL: The patient is alert, appropriate, uncomfortable. HEAD/NECK: Anicteric. No cervical lymphadenopathy. HEART: Regular. LUNGS: Coarse distant bilateral. ABDOMEN: Distended with diffuse lower abdominal wall edema, erythema and mild diffuse tenderness. Well-healed midline laparotomy with incisional hernia. Left groin ultrasonography with evidence of a fluid-filled, probable femoral hernia sac without visceral contents. EXTREMITIES: Diffuse ecchymosis and chronic hyperpigmentation. NEUROLOGIC EXAM: Alert and appropriate. LABORATORY DATA: White count 32,000, hemoglobin 13, platelets of 440. INR of 2.94, PTT 73. Sodium 119, potassium 5.3, chloride 75, CO2 31, BUN 29, creatinine 1.6, glucose 103. CT without contrast: Small bowel obstruction. Finding similar to her 2015 study with possible transition within the pelvis. No incarcerated femoral hernias. IMPRESSIONS: 1. Small bowel obstruction with heightened concern for bowel ischemia. Significant leukocytosis and progressive 1 week symptoms with evidence of completion over the last 48 hours. 2. Atrial fibrillation, on anticoagulation. 3. Hyponatremia. 4. Acute renal insufficiency. 5. History of alcohol and tobacco abuse. PLAN: I do recommend urgent laparotomy this evening despite severe electrolyte disturbances and Eliquis status. Kcentra has been administered. Findings and recommendations were discussed in detail with the patient and sister at length. We discussed the heightened risks for bleeding, infection, bowel ischemia, indications for bowel resection, anastomotic leak, recurrent hernia, as well as respiratory failure. All questions were answered. She desires to proceed. /[id number]/MODL MTDD
[2018-05-06] MEDS ORDERED: NS BOLUS 1000 ML (Wide open) IV ONE (03:20)
[2018-05-06] MEDS ORDERED: ONDANSETRON 4 MG/2 ML VIAL ONE (03:27)
[2018-05-06] MEDS ORDERED: LORazepam 2 MG/ML INJ ONE ×2 (03:34→12:02)
[2018-05-06] MEDS ORDERED: PIPERACILLIN SODIUM/TAZOBACTAM 3.375 GM in D5W 50 ML IV SCH (04:00)
[2018-05-06] MEDS ORDERED: PIPERACILLIN IV ONE (04:07)
[2018-05-06] MEDS ORDERED: TAZO IV ONE (04:07)
[2018-05-06] MEDS ORDERED: DEX IV ONE (04:07)
[2018-05-06] MEDS ORDERED: IPRATROPIUM/ALBUTEROL 3 ML DEYVIAL ONE ×2 (04:34→11:24)
[2018-05-06] MEDS ORDERED: IPRATROPIUM BROMIDE 0.5 MG/2.5 ML DEYVIAL ONE (04:43)
[2018-05-06] MEDS ORDERED: ALBUTEROL 3 ML DEYVIAL ONE (04:48)
[2018-05-06] MEDS: LORazepam 2 MG/ML INJ IV SCH ×3 (06:00→17:41)
[2018-05-06] MEDS ORDERED: MAGNESIUM SULF 1 GM/DEXTROSE 100 ML IV ONE (06:15)
[2018-05-06] MEDS ORDERED: MAGNESIUM SULF 2 GM/WATER 50 ML BAG IV ONE (06:29)
[2018-05-06] MEDS: PIPERACILLIN/TAZO 2.25 GM/DEX 50 ML IV SCH ×3 (10:00→21:35)
--- NOTE | 2018-05-06 11:07 | GOP ---
[f rep st] OPERATIVE REPORT DATE OF OPERATION: 05/06/2018 SURGEON: Juventino Edwards MD ANESTHESIA: General. ANESTHESIOLOGIST: Jose Roberto Ramírez MD PREOPERATIVE DIAGNOSIS: 1. Small bowel obstruction. 2. Ventral hernia. POSTOPERATIVE DIAGNOSIS: Small bowel obstruction secondary to necrotic calcified left lower quadrant mass with large pelvic and left lower quadrant abdominal wall abscess. PROCEDURE PERFORMED: Exploratory laparotomy, drainage of pelvic and left lower quadrant abdominal wall abscess, small bowel resection, ventral hernia repair, excision of left lower quadrant calcified mass. FINDINGS: See below. INDICATIONS: 72-year-old female with a history of a prior right hemicolectomy for a cecal volvulus with ischemia. She presents today with a 1 week history of progressive abdominal pain, obstipation, nausea, vomiting, multiple electrolyte abnormalities, severe leukocytosis, CT findings concerning for a small bowel obstruction with heightened clinical suspicion for ischemia. She is undergoing surgical exploration at this time. Risks and benefits were explained including bleeding, infection, indications for bowel resection, anastomotic leak, recurrent obstruction, alternative findings as well as cardiorespiratory complications. All questions were answered. She desires to proceed. DESCRIPTION OF PROCEDURE: General anesthesia was induced. The abdomen was explored through a prior vertical midline laparotomy. The patient had multiple large ventral defects throughout the lower part of her incision. These were all excised during the laparotomy. Extensive time was spent lysing the abdominal wall as well as pelvic and left lower quadrant adhesions. Upon opening up the left lower quadrant, there was an extremely large abscess cavity arising from her known chronic calcified left lower quadrant mass. A knuckle of small bowel was completely fused within this mass, the point of obstruction. This knuckle of bowel was unable to be salvaged and was subsequently excised. After adhesiolysis was completed, a [id number] stapled anastomosis was created with the GI-75 staplers. The remaining abdominal adhesions were all completely lysed, inclusive of omental and inter-loop adhesions as well as mesenteric adhesions. The abscess cavity extended deep into the pelvis as well as ulcerating into and throughout the left lower quadrant abdominal wall as noted above. The calcified mass was debrided and excised, including large portions of the eggshell calcifications. The sigmoid colon showed thickening likely resultant from the surrounding purulence. However, this did not appear to be the source of the abscess pocket, as specifically there was no odor whatsoever and no focal areas of bowel wall thickening. The pelvis was explored showing no mass lesions. The small bowel was run from the ileocecal valve to the ligament of Treitz, showing no evidence of enterotomy. The abdomen was copiously irrigated until clear. 15 round CAMILA drains were placed through bilateral upper quadrant stab incisions, the left lower quadrant being placed into the abdominal wall abscess, the right lower quadrant being placed into the pelvis. Remaining portions of omentum were lysed off the transverse colon and allowed to follow the midline visceral contents. The fascia inclusive of the multiple extensive hernias was widely undermined and the defect closed primarily with a running PDS suture. The skin was closed with Dermabond. The patient was extubated in the operating room and taken to the Intensive Care Unit in fair condition. /[id number]/MODL MTDD
[2018-05-06] MEDS: IPRATROPIUM/ALBUTEROL 3 ML DEYVIAL IH SCH ×3 (11:30→20:32)
[2018-05-06] MEDS ORDERED: ALBUMIN 5% 500 ML BOTTLE IV ONE (11:39)
[2018-05-06] MEDS: NICOTINE 21 MG/24 HR PATCH TD SCH (12:00)
[2018-05-06] MEDS ORDERED: NICOTINE 21 MG/24 HR PATCH TD ONE (12:01)
[2018-05-06] MEDS ORDERED: LEVALBUTEROL INHALER 200 PUFFS/15 GM MDI IH PRN (12:24)
[2018-05-06] MEDS ORDERED: ALBUMIN 5% 500 ML IV ONE (12:30)
--- NOTE | 2018-05-06 14:47 | SOAPPROG ---
SOAP Progress Note Assessment/Plan: Assessment:s/p SBR/drainage pelvic/abd wall abscess/ventral hernia repair. remains on levophed for pressor support. no other new issues. afebrile. alert, sedate. NG gastric. heart irreg, tachy. lungs coarse, diminished. abd dist. CAMILA thin sang. skin with multiple tears. CV - willing to accept SBP around 90 - titrate pressors as able RESP - COPD - cont regular meds, pulm toilet as able GI - cont NG decompression - will start TPN tomorrow - has not eaten in >7 days - await ileus resolution - LAKE - cont IVF, hyponatremia improved -Chronic alcoholism-resume beer once NG out. hyperkalemia improved ID - abscess adequately drained, zosyn, await cultures, abd wall erythema resolved. HEME - coagulopathy - cont to hold eliquis today PT/OT - out of bed as able Plan: 05/06/18 14:46 05/06/18 14:48 Objective: Vital Signs Temp Pulse Resp BP Pulse Ox 36.9 C 106 H 18 117/65 99 05/05/18 23:42 05/06/18 00:11 05/06/18 00:11 05/06/18 00:11 05/06/18 00:11 Microbiology 05/06/18 01:08 Gram Stain - Final Other - Eswab 05/05/18 05/06/18 05/07/18 05:59 05:59 05:59 Intake Total 345 Balance 345 PT 30.5 SEC (12.0-15.0) H 05/05/18 20:33 INR 2.94 (0.83-1.16) H 05/05/18 20:33 ICD10 Worksheet Patient Problems: Problems Problem Status Onset Rapid atrial fibrillation Acute Volvulus Acute
[2018-05-06] MEDS: FAMOTIDINE 20 MG/NACL 50 ML IV SCH (15:58)
--- NOTE | 2018-05-06 16:03 | ASMTCMCOM ---
CM Note CM Note Notes: 72yr old female admitted for bowel obs. 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 She is a smoker and drinks a 6 pack/day. Patient had sm bowel repair, drainage pelvic, abscess, ventral hernia repair. Therapies to eval. CM to follow. Date Signed: 05/06/2018 04:02 PM Electronically Signed By:Mana Marie LCSW
[2018-05-06 16:42] LABS: PLATELET COUNT 283 10^3/uL (150-400)
[2018-05-06 16:45] LABS: INR 2.61 (0.83-1.16); PROTIME(PATIENT) 27.9 SEC (12.0-15.0)
--- NOTE | 2018-05-06 17:48 | PDMN ---
Medical Necessity Medical necessity: [facility] S235 Bowel Surgery: colectomy, partial, w or w/o ostomy, by lap: 72 s/p ex lap, drainage of pelvic ald LLQ abd wall abscess, small bwel resection, ventral hernia repair, debridement of LLQ fibroid tumor and LLQ calcified mass. MC IP only.
[2018-05-06] MEDS: NOREPINEPHRINE BITARTRATE 4 MG in D5W 500 ML IV SCH (20:32)
[2018-05-06] MEDS ORDERED: [UNRECOGNIZED DRUG - OTHER] IH PRN (21:00)
[2018-05-06] MEDS: AMITRIPTYLINE HCL 10 MG TAB PO SCH (21:34)
[2018-05-07] MEDS: LORazepam 2 MG/ML INJ IV SCH ×4 (00:13→18:09)
[2018-05-07] MEDS: NS 1,000 ML IV SCH (00:13)
[2018-05-07] MEDS: HYDROmorphONE/DILAUDID 1 MG/ML INJ IVP PRN ×2 (03:13→19:27)
[2018-05-07] MEDS: PIPERACILLIN/TAZO 2.25 GM/DEX 50 ML IV SCH ×4 (03:14→21:21)
[2018-05-07] MEDS: IPRATROPIUM/ALBUTEROL 3 ML DEYVIAL IH SCH (05:03)
--- NOTE | 2018-05-07 06:10 | CPEKG ---
Test Reason : labs Blood Pressure : / mmHG Vent. Rate : 091 BPM Atrial Rate : 166 BPM P-R Int : 140 ms QRS Dur : 098 ms QT Int : 340 ms P-R-T Axes : 076 -42 085 degrees QTc Int : 419 ms SINUS TACHYCARDIA MULTIPLE ATRIAL PREMATURE COMPLEXES LEFT ANTERIOR FASCICULAR BLOCK Confirmed by Jaret Mcnamara ([id number]) on 05/07/2018 6:10:31 AM Referred By: Confirmed By:Jaret Mcnamara
[2018-05-07] MEDS: FAMOTIDINE 20 MG/NACL 50 ML IV SCH (08:57)
[2018-05-07] MEDS: NICOTINE 21 MG/24 HR PATCH TD SCH (08:57)
[2018-05-07] MEDS ORDERED: DIGOXIN 500 MCG/2 ML AMP IVP ONE (10:27)
[2018-05-07] MEDS ORDERED: DILTIAZEM 125 MG in D5W 125 ML IV SCH (10:30)
[2018-05-07] MEDS: LEVALBUTEROL 1.25 MG/3 ML DEYVIAL IH PRN ×2 (10:47→21:06)
[2018-05-07] MEDS: IPRATROPIUM BROMIDE 0.5 MG/2.5 ML DEYVIAL IH PRN ×2 (10:47→21:06)
--- NOTE | 2018-05-07 11:40 | WOCRNPDOC ---
WOCRN Advanced Assessment Note - Skin Integrity Problem, Advanced Assess Left Anterior Lower Leg Dressing Type: Allevyn Life Dressing Description: Clean/Dry, Intact Exudate Amount: Scant Exudate Characteristic(s): Serous Integumentary Issue Intervention: Visualized Under Dressing Irina Wound Tissue: Blanching Wound Bed Color: Red Wound Bed Constitution: Granulation Tissue (100%) Wound Edges: Attached Site Measurement - Head-to-Toe Length X Width X Depth (cm): 0.3x0.2x0.1 Skin Integrity Problem Comment: Wound cleansed with NS and gauze. Wound edges are attached, minimal serous drainage noted. Wound care will round again next week. Left Medial Ankle Dressing Type: Allevyn Life Dressing Description: Clean/Dry, Intact Exudate Amount: Scant Exudate Characteristic(s): Serous Integumentary Issue Intervention: Visualized Under Dressing Irina Wound Tissue: Blanching Wound Bed Color: Red Wound Bed Constitution: Granulation Tissue (100%) Wound Edges: Attached Site Measurement - Head-to-Toe Length X Width X Depth (cm): 0.5x0.8x0.1 Skin Integrity Problem Comment: Patient seen in outpatient [facility]. Wound cleansed with NS and gauze. Will continue the current POC from outpatient clinic of Dariela collagen, Aquacel Ag foam, and an Allevyn. Wound care will round again next week.
--- NOTE | 2018-05-07 12:31 | ASMTCMCOM ---
CM Note CM Note Notes: Patient's sister brought in her Adv Directives and they are in her chart. Date Signed: 05/07/2018 12:30 PM Electronically Signed By:Mana Marie LCSW
[2018-05-07] MEDS ORDERED: ALTEPLASE 2 MG VIAL IVP PRN (13:11)
[2018-05-07] MEDS ORDERED: METOPROLOL TARTRATE 5 MG/5 ML INJ IVP ONE (13:14)
[2018-05-07] MEDS ORDERED: AMIODARONE HCL 100 ML IV ONE (13:14)
--- NOTE | 2018-05-07 13:41 | PDINTPN ---
[facility] Floor Walker Progress Note Assessment/Plan: Assessment: Status post bowel perforation with abscess, drainage and surgical repair. On Zosyn. Per Dr. Edwards. Supraventricular tachycardia: History of chronic atrial fibrillation and SVT. Not getting oral medications secondary to abdominal surgery. On multiple IV medications now, starting to get control. Hypotension: Multifactorial. On low-dose Levophed. CVP approximately 7. 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 Ongoing tobacco abuse. Worse today, diffuse wheezes consistent with exacerbation. On inhaled therapies. Will add steroids. No evidence of bronchitis or pneumonia. Associated hypoxemia is present. On a simple mask at relatively low flow. History of alcohol abuse: 6 pack per day? Cannot rule out a component of alcohol withdrawal but seems a little less likely. On Ativan. Not on CIWA. Acute blood-loss anemia: Hemoglobin less than 7 today. Getting 1 unit of PRBCs. Will follow H&H. Anticoagulation: Came in on Eliquis. Currently on hold. In light of low hemoglobin will not start any prophylaxis. Follow-up PT and PTT will be obtained. GI prophylaxis: On famotidine. Nutrition: None currently. Will address in the next 24 hr. May need TPN if she cannot start adequate oral intake. Advanced directives: Do not resuscitate per her recent previous wishes. This was discussed with the patient's sister as well. Plan: Patient will be kept in the intensive care unit. Bronchodilator therapies in oxygen will be continued. IV steroids will be added. IV diltiazem , metoprolol, digoxin and amiodarone all being used for her rapid SVT/ supraventricular arrhythmias. 1 unit of blood today. Follow H&H later. Check PT and PTT later today. Continue antibiotics. Surgical issues per Dr. Edwards. Follow laboratory, CBC and chest x-ray in a.m.. 1 hr of critical care time spent directly with the patient today. Discussed issues including resuscitation with the patient's sister. Discussed with respiratory, nursing, and the ICU multi disciplinary team. Subjective: Restless, somewhat confused at times but very appropriate at others. Tachycardic, hypotensive on Levophed. Denies significant pain. Does have some shortness of breath. Objective: Vital Signs Temp Pulse Resp BP Pulse Ox 37 C 164 H 24 H 103/53 L 95 05/07/18 12:00 05/07/18 12:00 05/07/18 12:00 05/07/18 12:00 05/07/18 12:00 Microbiology 05/06/18 01:08 Gram Stain - Final Other - Eswab Laboratory Results 05/07/18 04:05 05/07/18 04:05 05/06/18 05/07/18 05/08/18 05:59 05:59 05:59 Intake Total 345 3655 Output Total 1870 325 Balance 345 1785 -325 PT 27.9 SEC (12.0-15.0) H 05/06/18 04:34 INR 2.61 (0.83-1.16) H 05/06/18 04:34 Laboratory Tests 05/06/18 05/06/18 05/07/18 03:29 04:34 04:05 PT 27.9 H INR 2.61 H APTT 52.9 H pCO2 31 L pO2 172 H ABG pH 7.46 H Mode BiPAP YES Calcium 7.5 L Magnesium 2.3 Physical Exam - Physical Exam General Appearance: alert, mild distress (Restless), thin EENT: PERRL/EOMI, other (NG tube an OxyMask in place) Neck: normal inspection (No JVD. CVP approximately 8. ) Respiratory: decreased breath sounds, rales (Few rales at bases), wheezing ( Present bilaterally), prolonged expiration, No lungs clear, No normal breath sounds, No rhonchi Cardiac/Chest: tachycardia (SVT at about 160) Abdomen: soft, No normal bowel sounds (Decreased bowel sounds), No non-tender ( Mild tenderness) Pelvic Exam: other (Moraes catheter in place. Improved urine output. Input greater than output last 24 hr.) Skin: warm/dry, other (Chronic skin changes), No normal color Extremities: No pedal edema Neuro/Psych: no motor/sensory deficits, alert (But somewhat confused) ICD10 Worksheet Patient Problems: Problems Problem Status Onset Volvulus Acute Rapid atrial fibrillation Acute
--- NOTE | 2018-05-07 13:47 | POSTANESTH ---
Post Anesthetic Evaluation Cardiovascular Status: Normal, Stable Respiratory Status: Normal, Stable Level of Consciousness/Mental Status: Can Participate in Eval Pain Control: Adequate, Prn Tx Ordered Complications Possibly Related to Anesthesia: None Noted
--- NOTE | 2018-05-07 14:10 | SOAPPROG ---
<JerryJuventino Herman - Last Filed: 05/07/18 16:27> SOAP Progress Note Assessment/Plan: Assessment: rec'd 1U PRBC with appropriate response overnight. started on amio for afib. remains agitated with staff. cx strep/Ecoli. alert, appropriate, agitated with staff. abd soft, approp dist. incis clean. NG thick gastric. CAMILA thin sang. slow progress. cont amio for afib. titrate pressors as able. hold anticoag for today -repeat coags in am - no concern for ongoing bleeding at this time. cont zosyn for abd cx, drains all clear - will treat appx 1 week barring any other infectious concerns. cont NG for now - TPN to start tomorrow. care plan reviewed with ICU team. Plan: 05/07/18 16:27 Objective: Vital Signs Temp Pulse Resp BP Pulse Ox 37 C 116 H 20 102/45 L 94 05/07/18 12:00 05/07/18 15:15 05/07/18 15:15 05/07/18 15:15 05/07/18 15:15 Microbiology 05/06/18 01:08 Gram Stain - Final Other - Eswab Laboratory Results 05/07/18 15:20 05/07/18 04:05 05/06/18 05/07/18 05/08/18 05:59 05:59 05:59 Intake Total 345 3655 Output Total 1870 675 Balance 345 1785 -675 PT 27.9 SEC (12.0-15.0) H 05/06/18 04:34 INR 2.61 (0.83-1.16) H 05/06/18 04:34 ICD10 Worksheet Patient Problems: Problems Problem Status Onset Rapid atrial fibrillation Acute Volvulus Acute <Yu Carbajal - Last Filed: 05/07/18 17:16> SOAP Progress Note Assessment/Plan: Assessment/Plan: S/p small bowel resection, pelvic/abdominal wall abscess drainage, and ventral hernia repair POD #1. CV- Continue with levophed as needed for BPs below 90s systolic. RESP- Continue with regular meds. Pulmonary toilet. GI- Anticipate post op ileus. Continue with NG tube. TPN. - Hyponatremia improving. Hypokalemia- replace with potassium. HEME- Low Hgb- transfused this am. ID- Continue zosyn, awaiting final culture results. ENDO- no concerns. PT/OT- PT to evaluate and treat. Patient seen and evaluated with Dr. Edwards. 05/07/18 14:25 05/07/18 14:28 Subjective: Feels tired today. Mild diffuse abdominal pain- pain well managed with current medication regimen. No nausea. Area of prior left low abdominal pain prior to operation now improved. No BM or flatus. No urinary complaints. Denies feeling palpitations, shortness of breath, or chest pain. Objective: Vital Signs Temp Pulse Resp BP Pulse Ox 37 C 164 H 24 H 94/51 L 96 05/07/18 12:00 05/07/18 13:00 05/07/18 13:00 05/07/18 13:00 05/07/18 13:00 Microbiology 05/06/18 01:08 Gram Stain - Final Other - Eswab Laboratory Results 05/07/18 04:05 05/07/18 04:05 05/06/18 05/07/18 05/08/18 05:59 05:59 05:59 Intake Total 345 3655 Output Total 1870 500 Balance 345 1785 -500 PT 27.9 SEC (12.0-15.0) H 05/06/18 04:34 INR 2.61 (0.83-1.16) H 05/06/18 04:34 Physical Exam: Gen: appears comfortable but drowsy, laying in bed, alert and oriented HEENT: anicteric, NGT in place Skin: dry, normal Heart: irregular, tachycardic Lungs: diminished, course breath sounds and exp wheeze more prominent right upper Abdomen: soft, appropriately distended, appropriate diffuse tenderness. Incision clean without erythema or drainage Ext: 2+ edema bilateral upper and lower ext
[2018-05-07] MEDS ORDERED: D10W 1,000 ML IV PRN (16:20)
[2018-05-07] MEDS ORDERED: PROTOCOL POTASSIUM 1 DOSE MISC PRN (16:38)
[2018-05-07] MEDS ORDERED: PROTOCOL MAGNESIUM 1 DOSE IV PRN (16:38)
[2018-05-07 16:43] LABS: INR 1.42 (0.83-1.16); PROTIME(PATIENT) 17.5 SEC (12.0-15.0)
[2018-05-07] MEDS ORDERED: POTASSIUM CL 10 MEQ TAB PO ONE (19:18)
[2018-05-07] MEDS: DILTIAZEM HCL/D5W 125 ML IV SCH (19:20)
[2018-05-07] MEDS: AMITRIPTYLINE HCL 10 MG TAB PO SCH (19:27)
[2018-05-07] MEDS ORDERED: ALBUMIN 5% 500 ML BOTTLE IV ONE (19:59)
[2018-05-07] MEDS ORDERED: FLUMAZENIL 0.5 MG/5 ML MDV IVP PRN (20:16)
[2018-05-07] MEDS ORDERED: LORazepam 1 MG TAB PO PRN (20:16)
[2018-05-07] MEDS ORDERED: THIAMINE HCL 500 MG in NS 100 ML IV SCH (20:30)
[2018-05-07] MEDS: LORazepam 2 MG/ML INJ IVP PRN (20:30)
[2018-05-07] MEDS: NOREPINEPHRINE BITARTRATE 4 MG in D5W 500 ML IV SCH (20:42)
[2018-05-07] MEDS: methylPREDNISolone SOD SUCC 40 MG/ML VIAL IVP SCH (20:56)
[2018-05-08] MEDS: NS 1,000 ML IV SCH (02:17)
[2018-05-08] MEDS: LORazepam 2 MG/ML INJ IVP PRN ×3 (03:08→21:04)
[2018-05-08] MEDS: PIPERACILLIN/TAZO 2.25 GM/DEX 50 ML IV SCH (03:08)
[2018-05-08] MEDS ORDERED: NOREPINEPHRINE BITARTRATE 4 MG in NS 500 ML IV SCH (05:00)
[2018-05-08 05:30] LABS: PLATELET COUNT 252 10^3/uL (150-400)
[2018-05-08 05:35] LABS: INR 1.3 (0.83-1.16); PROTIME(PATIENT) 16.4 SEC (12.0-15.0)
--- NOTE | 2018-05-08 08:50 | SOAPPROG ---
SOAP Progress Note Assessment/Plan: Assessment:agitation overnight - no other new issues. afebrile. alert, working with PT moving to chair. abd soft, less distended. NG more gastric. drains serosang. incis clean. no abd wall erythema. lytes normalized. Hb 8. pod#2 s/p ex lap/sbr/abscess drainage. afib rate with better control. still requiring small dose levophed. cx with pansensitive ecoli and strep - change to unasyn for an additional week. to start TPN today - cont NG for today - if falls out, will not replace. OK to resume anticoag. intermediate care/ progress reviewed with sister at length at bedside - pt's advanced directive reviewed with her as well - appropriate to continue with supportive care measures as in process for now. rec'd 1U PRBC with appropriate response overnight. started on amio for afib. remains agitated with staff. cx strep/Ecoli. alert, appropriate, agitated with staff. abd soft, approp dist. incis clean. NG thick gastric. CAMILA thin sang. slow progress. cont amio for afib. titrate pressors as able. hold anticoag for today -repeat coags in am - no concern for ongoing bleeding at this time. cont zosyn for abd cx, drains all clear - will treat appx 1 week barring any other infectious concerns. cont NG for now - TPN to start tomorrow. care plan reviewed with ICU team. Plan: 05/07/18 16:27 05/08/18 08:46 Objective: Vital Signs Temp Pulse Resp BP Pulse Ox 37.5 C 120 H 23 H 111/50 L 98 05/08/18 04:00 05/08/18 07:52 05/08/18 07:52 05/08/18 07:52 05/08/18 07:52 Microbiology 05/06/18 01:08 Gram Stain - Final Other - Eswab Laboratory Results 05/08/18 05:15 05/08/18 05:15 05/07/18 05/08/18 05/09/18 05:59 05:59 05:59 Intake Total 3655 2658 Output Total 1870 1755 100 Balance 1785 903 -100 PT 16.4 SEC (12.0-15.0) H 05/08/18 05:15 INR 1.30 (0.83-1.16) H 05/08/18 05:15 ICD10 Worksheet Patient Problems: Problems Problem Status Onset Rapid atrial fibrillation Acute Volvulus Acute
[2018-05-08] MEDS: methylPREDNISolone SOD SUCC 40 MG/ML VIAL IVP SCH ×2 (09:11→20:15)
[2018-05-08] MEDS: NICOTINE 21 MG/24 HR PATCH TD SCH (09:11)
[2018-05-08] MEDS ORDERED: D50W 25 GM/50 ML SYR IVP PRN (09:35)
[2018-05-08] MEDS: ENOXAPARIN 40 MG/0.4 ML SYR SC SCH ×2 (09:42→20:15)
[2018-05-08] MEDS ORDERED: METOPROLOL TARTRATE 5 MG/5 ML INJ IVP ONE (09:52)
--- NOTE | 2018-05-08 09:57 | PDINTPN ---
Test Data Developer Progress Note Assessment/Plan: Assessment: Status post bowel perforation with abscess, drainage and surgical repair. On Zosyn. Per Dr. Edwards. Supraventricular tachycardia: History of chronic atrial fibrillation and SVT. Not getting oral medications secondary to abdominal surgery. On multiple IV medications now, rate remains in 120s AFib. Hypotension: Multifactorial. Off Levophed this a.m. CVP 7. 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 Ongoing tobacco abuse. Diffuse wheezes consistent with exacerbation. On inhaled therapies and steroids. Cannot rule out early pneumonia at left base but changes quite minimal currently. Associated hypoxemia is present. On a simple mask at relatively low flow. History of alcohol abuse: 6 pack per day or more? Now on CIWA. Received significant Ativan overnight for her size. Quite somnolent this morning. PCO2 up as well. If she escalates again I will choose Precedex. Ativan will be continued, but decreased. Acute blood-loss anemia: Hemoglobin 8 today after 1 unit of PRBCs yesterday. Will follow H&H. Anticoagulation: Came in on Eliquis. Currently on hold. Prophylactic enoxaparin started. GI prophylaxis: On famotidine. Nutrition: On TPN. Advanced directives: Do not resuscitate per her recent previous wishes. This was discussed with the patient's sister as well. Plan: Continue aggressive supportive care in the intensive care unit. Continue antibiotics. Bronchodilator therapies, O2 and IV steroids. IV diltiazem, metoprolol for rapid AFib. Continue to follow H&H. Surgical issues per Dr. Edwards. Follow laboratory, CBC, ABG and chest x-ray in a.m.. 45 min of critical care time spent directly with the patient today. Discussed issues including resuscitation with the patient's sister. Discussed with respiratory, nursing, and the ICU multi disciplinary team. Subjective: Lethargic, arousable. Placed on CIWA overnight, received at least 8 mg of Ativan. Denies pain. Some shortness of breath Objective: Vital Signs Temp Pulse Resp BP Pulse Ox 37.5 C 120 H 22 H 102/46 L 99 05/08/18 04:00 05/08/18 09:00 05/08/18 09:00 05/08/18 09:00 05/08/18 09:00 Microbiology 05/06/18 01:08 Gram Stain - Final Other - Eswab Laboratory Results 05/08/18 05:15 05/08/18 05:15 05/07/18 05/08/18 05/09/18 05:59 05:59 05:59 Intake Total 3651 2658 Output Total 1870 1755 100 Balance 1785 903 -100 PT 16.4 SEC (12.0-15.0) H 05/08/18 05:15 INR 1.30 (0.83-1.16) H 05/08/18 05:15 Laboratory Tests 05/08/18 05:15 Calcium 7.8 L Phosphorus 3.7 Magnesium 2.1 AST 35 ALT 35 Albumin 2.2 L Laboratory Tests 05/08/18 05:15 pCO2 58 H pO2 125 H ABG pH 7.26 L ABG O2 Saturation 98 H Total O2 Concentration 3.0 Small infiltrate and/or area of atelectasis at left base with small effusion. Lungs otherwise clear. Physical Exam - Physical Exam General Appearance: thin, No WD/WN (Up in chair, lethargic, arousable. Secretions in throat, difficult clear) EENT: PERRL/EOMI, other (Simple mask and NG tube in place) Neck: normal inspection Respiratory: decreased breath sounds, rales (At bases), rhonchi (Centrally: Trachea/larynx), wheezing (Bilaterally), prolonged expiration Cardiac/Chest: irregularly irregular (120) Abdomen: distended (Some distension), No normal bowel sounds (Decreased), No non -tender (Moderately tender) Pelvic Exam: other (Moraes catheter in place: Adequate urine output) Skin: warm/dry, pallor, other (Chronic skin changes, discoloration) Extremities: No pedal edema Neuro/Psych: no motor/sensory deficits (Moves all extremities equally. Very weak.), cognition abnormalities (Somnolent this morning, arouses) ICD10 Worksheet Patient Problems: Problems Problem Status Onset Volvulus Acute Rapid atrial fibrillation Acute
[2018-05-08] MEDS: IPRATROPIUM BROMIDE 0.5 MG/2.5 ML DEYVIAL IH SCH ×3 (11:10→21:50)
[2018-05-08] MEDS: LEVALBUTEROL 1.25 MG/3 ML DEYVIAL IH SCH ×3 (11:10→21:50)
[2018-05-08] MEDS: AMPICILLIN/SULBACTAM 3 GM in NS 100 ML IV SCH ×2 (11:42→17:36)
[2018-05-08] MEDS: INSULIN REGULAR, HUMAN 100 UNIT/1 ML VIAL STANDARD SC SCH ×2 (12:00→18:35)
[2018-05-08] MEDS ORDERED: THIAMINE HCL 100 MG in NS 100 ML IV SCH (13:30)
[2018-05-08] MEDS ORDERED: THIAMINE HCL 100 MG in NS 100 ML IV ONE (13:45)
[2018-05-08] MEDS ORDERED: DEXMEDETOMIDINE HCL 400 MCG in NS 100 ML IV SCH (14:00)
[2018-05-08] MEDS: DILTIAZEM HCL/D5W 125 ML IV SCH (15:40)
[2018-05-08] MEDS: LORazepam 2 MG/ML INJ IVP SCH (17:37)
[2018-05-08] MEDS: TPN W/ FAMOTIDINE 1 EA BAG IV SCH (20:15)
[2018-05-08] MEDS: AMITRIPTYLINE HCL 10 MG TAB PO SCH (20:15)
[2018-05-08] MEDS: HYDROmorphONE/DILAUDID 1 MG/ML INJ IVP PRN (23:05)
[2018-05-09] MEDS: AMPICILLIN/SULBACTAM 3 GM in NS 100 ML IV SCH ×5 (00:07→23:53)
[2018-05-09] MEDS: LORazepam 2 MG/ML INJ IVP SCH ×4 (00:07→17:49)
[2018-05-09] MEDS: INSULIN REGULAR, HUMAN 100 UNIT/1 ML VIAL STANDARD SC SCH ×5 (00:10→23:59)
[2018-05-09] MEDS: DILTIAZEM HCL/D5W 125 ML IV SCH (02:51)
[2018-05-09] MEDS: LEVALBUTEROL 1.25 MG/3 ML DEYVIAL IH SCH ×4 (05:35→21:52)
[2018-05-09] MEDS: IPRATROPIUM BROMIDE 0.5 MG/2.5 ML DEYVIAL IH SCH ×4 (05:35→21:52)
[2018-05-09] MEDS: ENOXAPARIN 40 MG/0.4 ML SYR SC SCH ×2 (10:13→20:23)
[2018-05-09] MEDS: NICOTINE 21 MG/24 HR PATCH TD SCH (10:15)
[2018-05-09] MEDS: methylPREDNISolone SOD SUCC 40 MG/ML VIAL IVP SCH (10:15)
[2018-05-09] MEDS ORDERED: HYDROmorphONE/DILAUDID 1 MG/ML INJ IVP PRN (10:28)
--- NOTE | 2018-05-09 13:14 | SOAPPROG ---
SOAP Progress Note Assessment/Plan: Assessment/Plan: 72-year-old patient with a history of alcohol and tobacco dependence presented with ovarian mass abscess with small-bowel obstruction secondary to the mass. 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 The patient has short gut and has lost weight with failure to thrive since that time. Patient underwent surgery 3 days ago for her obstruction. Since then she has required treatment of alcohol withdrawal, atrial fibrillation which is now rate controlled on diltiazem and been on vasopressor medication for intermittent hypotension. Last night she got Dilaudid for increase in CIWA scale currently the patient is stable. Discussion was held with her daughter. It irregular rate and rhythm Abdomen soft less distended Incision clean dry and intact No anasarca 2+ over 2+ peripheral pulses Laboratory studies and chest x-ray reviewed these are stable from yesterday Continue support of electrolytes for replacement Continue overall medical support await return of bowel activity may benefit from trickle tube feeds Continue TPN for now. Still critically ill will need ICU stay until stabilized. Realistic goals and expectations discussed with patient's daughter. 05/09/18 13:11 Objective: Vital Signs Temp Pulse Resp BP Pulse Ox 36.7 C 124 H 20 147/80 H 97 05/09/18 12:00 05/09/18 12:00 05/09/18 12:00 05/09/18 12:00 05/09/18 12:00 Microbiology 05/06/18 01:08 Gram Stain - Final Other - Eswab Laboratory Results 05/08/18 05:15 05/09/18 05:30 05/08/18 05/09/18 05/10/18 05:59 05:59 05:59 Intake Total 5538 856 Output Total 1755 1129 Balance 903 -273 PT 16.4 SEC (12.0-15.0) H 05/08/18 05:15 INR 1.30 (0.83-1.16) H 05/08/18 05:15 ICD10 Worksheet Patient Problems: Problems Problem Status Onset Rapid atrial fibrillation Acute Volvulus Acute
--- NOTE | 2018-05-09 16:52 | ASMTCMCOM ---
CM Note CM Note Notes: A family meeting was held today and in attendance were, Karen WeeksalvaradoJoss, patient's sister and Maya SIMMONS Paula's daughter and patient's niece, Alfa, Maya's fiance, Chaplain Rasta, Dr. Snyder and myself MARVA Hernandez, dependency case manager.Overall patient's family is satisfied with the care patient is getting. They describe patient as funny and entertaining but also stubborn with a clear decision she is not going to stop drinking and smoking. Maya states patient drinks much more than a 6 pack per day, usually starting at 11:00 AM and continuing all day into the night. Maya states she is chronically dehydrated. Karen and Maya had questions regarding how long withdrawal would take. Dr. Snyder joined the meeting and stated she was going to need more time and there wasn't a clear date for when patient would be through withdrawals. Maya has concerns that patient will want to leave the hospital as soon she is thinking clearly again. Maya states she and her mother, Karen can provide 24 hour care for patient at d/c.They think she would be most amenable to home health care. They would be interested in [facility], which will serve the [facility] area. However, D/C plan is still TBD. If patient goes to SNF rehab it will have to be a facility comfortable with letting the patient have alcohol like [facility]. Per the family, patient is highly unlikely to agree to SNF rehab but would most likely cooperate with home health care. The family was informed of the process for getting another family meeting set up if they need to. CM will follow. Date Signed: 05/09/2018 04:52 PM Electronically Signed By:Mary Humphrey LCSW
--- NOTE | 2018-05-09 16:58 | PDINTPN ---
Hall Supervisor Progress Note Assessment/Plan: Assessment: Status post bowel perforation with abscess, drainage and surgical repair. On Unasyn. Surgical issues per Dr. Edwards. Supraventricular tachycardia: History of chronic atrial fibrillation and SVT. Not getting oral medications secondary to abdominal surgery. On IV medications now, rate remains in 120s AFib. Hypotension: Multifactorial. Back on low-dose Levophed this a.m. 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 Ongoing tobacco abuse. Diffuse wheezes consistent with exacerbation. On inhaled therapies and steroids. Cannot rule out early pneumonia at left base but changes quite minimal currently. Associated hypoxemia is present. On a simple mask or cannula at 2 L. History of alcohol abuse: 6 pack per day or more? Now on CIWA. Received less Ativan however receive more Dilaudid earlier today. Quite somnolent this morning. PCO2 remains elevated but slightly better If she escalates again she will Precedex. Ativan can be used at decreased doses. Dilaudid will be decreased. Acute blood-loss anemia: Hemoglobin 8 yesterday after 1 unit of PRBCs 05/07. Follow. Anticoagulation: Came in on Eliquis. Currently on hold. Prophylactic enoxaparin started. GI prophylaxis: On famotidine. Nutrition: On TPN. Advanced directives: Do not resuscitate per her recent previous wishes. This was discussed with the patient's sister as well. Plan: Continue aggressive supportive care in the intensive care unit. Continue antibiotics. Bronchodilator therapies, O2 and IV steroids. Will decrease the latter. Continue IV diltiazem, metoprolol for rapid AFib. Continue CIWA protocol comma use Precedex if indicated. Surgical issues per Dr. Edwards. Follow laboratory, CBC, ABG and chest x-ray in a.m.. 40 min of critical care time spent directly with the patient today. Family conference today for about 30 min. Discussed issues with the patient's sister and niece. Despite arm multiple underlying medical problems and relatively large abdominal surgery it is felt that she still has a reasonably good chance of making it through all of this. Current level of support will be continued. Continuing DNR status in the event of a cardiopulmonary event was also again discussed and agreed upon. Subjective: More sedated again this morning, probably secondary to Dilaudid given early in the a.m.. Arouses. Difficult to understand secondary to slurred speech. Objective: Vital Signs Temp Pulse Resp BP Pulse Ox 36.1 C 129 H 20 146/70 H 98 05/09/18 15:00 05/09/18 16:00 05/09/18 16:00 05/09/18 16:00 05/09/18 16:00 Microbiology 05/06/18 01:08 Gram Stain - Final Other - Eswab Laboratory Results 05/08/18 05:15 05/09/18 05:30 05/08/18 05/09/18 05/10/18 05:59 05:59 05:59 Intake Total 2658 856 Output Total 1755 1129 Balance 903 -273 PT 16.4 SEC (12.0-15.0) H 05/08/18 05:15 INR 1.30 (0.83-1.16) H 05/08/18 05:15 Laboratory Tests 05/09/18 05/09/18 05:30 05:31 pCO2 55 H pO2 71 ABG pH 7.31 L ABG O2 Saturation 94 Total O2 Concentration 2.0 Calcium 8.4 L Phosphorus 2.4 L Magnesium 2.3 CXR: No change. Haziness at bases, left greater than right Physical Exam - Physical Exam General Appearance: no apparent distress, thin, other (Somnolent, arouses), No WD/WN EENT: PERRL/EOMI, other (Nasal cannula or simple mask in place at 2 L. NG tube in place to suction. ) Neck: normal inspection (No JVD) Respiratory: lungs clear, decreased breath sounds, rales (Few nonspecific rales at bases), wheezing (Bilaterally in and expiration), prolonged expiration Cardiac/Chest: irregularly irregular (AFib, approximately 115) Abdomen: distended (Mild distension), other (CAMILA drains with decreasing output), No normal bowel sounds (Decreased bowel sounds, some present), No non-tender ( Some tenderness) Pelvic Exam: other (Moraes catheter in place: Good urine output) Skin: warm/dry, pallor, No normal color (Chronic discoloration) Extremities: No pedal edema Neuro/Psych: no motor/sensory deficits (Moves all extremities, quite weak), cognition abnormalities (Confused, somnolent) ICD10 Worksheet Patient Problems: Problems Problem Status Onset Volvulus Acute Rapid atrial fibrillation Acute
[2018-05-09] MEDS: DEXMEDETOMIDINE HCL 400 MCG in NS 100 ML IV PRN (18:08)
[2018-05-09] MEDS: AMITRIPTYLINE HCL 10 MG TAB PO SCH (20:23)
[2018-05-09] MEDS: TPN W/ FAMOTIDINE 1 EA BAG IV SCH (20:23)
[2018-05-10] MEDS: DILTIAZEM HCL/D5W 125 ML IV SCH ×3 (00:42→16:57)
[2018-05-10] MEDS: LEVALBUTEROL 1.25 MG/3 ML DEYVIAL IH SCH ×4 (05:46→22:45)
[2018-05-10] MEDS: IPRATROPIUM BROMIDE 0.5 MG/2.5 ML DEYVIAL IH SCH ×4 (05:46→22:45)
[2018-05-10] MEDS: LORazepam 2 MG/ML INJ IVP SCH ×4 (05:52→17:50)
[2018-05-10] MEDS: AMPICILLIN/SULBACTAM 3 GM in NS 100 ML IV SCH ×3 (05:52→17:50)
[2018-05-10] MEDS: INSULIN REGULAR, HUMAN 100 UNIT/1 ML VIAL STANDARD SC SCH ×3 (05:52→17:50)
--- NOTE | 2018-05-10 08:56 | SOAPPROG ---
SOAP Progress Note Assessment/Plan: Assessment/Plan: POD#4 s/p exlap enterectomy, pelvic abscess drainage and mass removal Better night. On precedex and benzos for etoh withdrawal Ecoli and Strep in cultures flores sensitive. On unasyn day 4/7. Rate controlled afib PICC LUE. TPN on 72-year-old patient with a history of alcohol and tobacco dependence presented with ovarian mass abscess with small-bowel obstruction secondary to the mass. 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 The patient has short gut and has lost weight with failure to thrive since that time. Patient underwent surgery 3 days ago for her obstruction. Since then she has required treatment of alcohol withdrawal, atrial fibrillation which is now rate controlled on diltiazem and been on vasopressor medication for intermittent hypotension. Last night she got Dilaudid for increase in CIWA scale currently the patient is stable. Discussion was held with her daughter. It irregular rate and rhythm Abdomen soft less distended Incision clean dry and intact No anasarca 2+ over 2+ peripheral pulses Laboratory test reviewed Continue support of electrolytes for replacement Continue overall medical support await return of bowel activity NGT out. Swallow study pending. Beer with each meal when able Continue TPN for now. Still critically ill will need ICU stay until stabilized. Realistic goals and expectations discussed with patient's daughter. 05/09/18 13:11 05/10/18 08:52 Objective: Vital Signs Temp Pulse Resp BP Pulse Ox 36 C 115 H 25 H 105/57 L 100 05/10/18 04:00 05/10/18 06:00 05/10/18 06:00 05/10/18 06:00 05/10/18 06:00 Microbiology 05/06/18 01:08 Gram Stain - Final Other - Eswab Laboratory Results 05/08/18 05:15 05/10/18 05:44 05/09/18 05/10/18 05/11/18 05:59 05:59 05:59 Intake Total 856 2155 Output Total 1129 1210 Balance -273 945 PT 16.4 SEC (12.0-15.0) H 05/08/18 05:15 INR 1.30 (0.83-1.16) H 05/08/18 05:15 ICD10 Worksheet Patient Problems: Problems Problem Status Onset Rapid atrial fibrillation Acute Volvulus Acute
[2018-05-10] MEDS ORDERED: THIAMINE HCL 100 MG TAB PO SCH (09:00)
[2018-05-10] MEDS: NICOTINE 21 MG/24 HR PATCH TD SCH (09:52)
[2018-05-10] MEDS: methylPREDNISolone SOD SUCC 40 MG/ML VIAL IVP SCH (09:52)
[2018-05-10] MEDS: ENOXAPARIN 40 MG/0.4 ML SYR SC SCH ×2 (09:52→22:27)
--- NOTE | 2018-05-10 12:17 | PDINTPN ---
Lost Charge Card Clerk Progress Note Assessment/Plan: Assessment: 72-year-old independent woman with chronic tobacco and alcohol use, COPD, and chronic atrial fibrillation on anticoagulation admitted 05/05 with a small bowel obstruction. She was found to have a calcified abdominal mass which had entrapped a portion of the small bowel. A left lower quadrant abscess and peritonitis were present Status post SBO with bowel perforation, LLQ abscess, drainage and surgical repair. On Unasyn. Surgical issues per Dr. Edwards. Supraventricular tachycardia: History of chronic atrial fibrillation and SVT. Not getting oral medications secondary to abdominal surgery. On IV medications now, rate control better today, low 100s on diltiazem drip. Hypotension: Multifactorial. Off Levophed. 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 Ongoing tobacco abuse. Diffuse wheezes consistent with exacerbation. On inhaled therapies and steroids. Cannot rule out early pneumonia at left base but changes quite minimal currently. Associated hypoxemia is present. On a simple mask or cannula at 2 L. Alcohol withdrawal. History of alcohol abuse: 6 pack per day or more? On CIWA but somewhat off protocol. Currently on Precedex per my instructions as this has less sedative affects on respiration. Ativan can be used at decreased doses. Dilaudid in decreased doses remains on MAR for pain. AMS: The above medications resulted in significant obtundation. With these medications pCO2 has significantly increased. However, when more awake she is confused, agitated, and hallucinating. The latter appears to be secondary to alcohol withdrawal as well as toxic metabolic effects associated with her current illness. Acute blood-loss anemia: Hemoglobin 8 05/08 after 1 unit of PRBCs 05/07. CBC today. Anticoagulation: Came in on Eliquis. Currently on hold. Prophylactic enoxaparin started. GI prophylaxis: On famotidine. Nutrition: On TPN. Consider stopping this once bowel function returns and going to a gastric feeding tube. Advanced directives: Do not resuscitate per her recent previous wishes. This was discussed with the patient's sister as well. Plan: Check CBC now. Check ABG for pCO2 elevation? Continue full supportive care in the intensive care unit. Continue antibiotics, bronchodilator therapies , O2 and IV steroids. Continue IV diltiazem for AFib. Continue CIWA protocol, with Precedex as indicated. Surgical issues per Dr. Edwards. Follow laboratory, CBC, ABG and chest x-ray. 40 min of critical care time spent directly with the patient today. Discussed with the patient's sister, nursing, respiratory, and the ICU multi disciplinary team. Subjective: Quite somnolent this morning, barely arousable, nonverbal. On Precedex. Also got some Ativan overnight. Woke up as the morning has gone on. Objective: Vital Signs Temp Pulse Resp BP Pulse Ox 36.5 C 98 20 115/49 L 97 05/10/18 11:59 05/10/18 11:59 05/10/18 11:59 05/10/18 11:59 05/10/18 11:59 Microbiology 05/06/18 01:08 Gram Stain - Final Other - Eswab Laboratory Results 05/08/18 05:15 05/10/18 10:55 05/09/18 05/10/18 05/11/18 05:59 05:59 05:59 Intake Total 856 2155 Output Total 1129 1210 Balance -273 945 PT 16.4 SEC (12.0-15.0) H 05/08/18 05:15 INR 1.30 (0.83-1.16) H 05/08/18 05:15 Laboratory Tests 05/10/18 05/10/18 05:44 10:55 Calcium 8.5 Magnesium 2.1 Physical Exam - Physical Exam General Appearance: obtunded (Arouses weakly), thin EENT: PERRL/EOMI, other (Nasal cannula in place at 2 L) Neck: normal inspection (No obvious JVD) Respiratory: decreased breath sounds, rhonchi (Few central rhonchi present), wheezing (Some end expiratory wheezes noted today), prolonged expiration, No rales Cardiac/Chest: systolic murmur, irregularly irregular Abdomen: distended (Mild distension), other (Possibly is pass gas according to the family?), No normal bowel sounds (Significantly decreased, few bowel sounds are present.), No non-tender (Some tenderness comma difficult to assess currently.), No soft Skin: warm/dry, pallor, other (Chronic discoloration) Extremities: pedal edema (Trace) Neuro/Psych: no motor/sensory deficits (Moves all extremities, remains very weak ), cognition abnormalities (Somnolent, difficult to assess.) ICD10 Worksheet Patient Problems: Problems Problem Status Onset Rapid atrial fibrillation Acute Volvulus Acute
[2018-05-10 13:01] LABS: PLATELET COUNT 246 10^3/uL (150-400)
[2018-05-10] MEDS: AMITRIPTYLINE HCL 10 MG TAB PO SCH (20:43)
[2018-05-10] MEDS: TPN W/ FAMOTIDINE 1 EA BAG IV SCH (20:43)
[2018-05-11] MEDS: AMPICILLIN/SULBACTAM 3 GM in NS 100 ML IV SCH ×5 (00:19→23:40)
[2018-05-11] MEDS: INSULIN REGULAR, HUMAN 100 UNIT/1 ML VIAL STANDARD SC SCH ×4 (00:20→18:10)
[2018-05-11] MEDS: LORazepam 2 MG/ML INJ IVP SCH ×3 (00:20→12:15)
[2018-05-11] MEDS: DILTIAZEM HCL/D5W 125 ML IV SCH ×4 (00:54→23:58)
[2018-05-11] MEDS: DEXMEDETOMIDINE HCL 400 MCG in NS 100 ML IV PRN (00:54)
[2018-05-11] MEDS: IPRATROPIUM BROMIDE 0.5 MG/2.5 ML DEYVIAL IH SCH ×4 (05:25→23:01)
[2018-05-11] MEDS: LEVALBUTEROL 1.25 MG/3 ML DEYVIAL IH SCH ×4 (05:25→23:01)
[2018-05-11 05:38] LABS: PLATELET COUNT 253 10^3/uL (150-400)
[2018-05-11] MEDS: ENOXAPARIN 40 MG/0.4 ML SYR SC SCH ×2 (08:37→20:55)
[2018-05-11] MEDS: methylPREDNISolone SOD SUCC 40 MG/ML VIAL IVP SCH (08:37)
[2018-05-11] MEDS: NICOTINE 21 MG/24 HR PATCH TD SCH (08:37)
[2018-05-11] MEDS ORDERED: ENALAPRILAT DIHYDRATE 1.25 MG/ML VIAL IVP PRN (10:17)
--- NOTE | 2018-05-11 11:24 | SOAPPROG ---
SOAP Progress Note Assessment/Plan: Assessment/Plan: POD#5 s/p exlap enterectomy, pelvic abscess drainage and mass removal Better night. On precedex and benzos for etoh withdrawal Ecoli and Strep in cultures flores sensitive. On unasyn day 5/. Afib in 120-140 PICC LUE. TPN ongoing increased leucocytosis 72-year-old patient with a history of alcohol and tobacco dependence presented with ovarian mass abscess with small-bowel obstruction secondary to the mass. 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 The patient has short gut and has lost weight with failure to thrive since that time. Since surgery she has required treatment of alcohol withdrawal, atrial fibrillation on diltiazem and been on vasopressor medication for intermittent hypotension. Last night she got Dilaudid for increase in CIWA scale currently the patient is stable. Discussion was held with her sister. Irregular rate and rhythm Rhonchi from upper airways. chest clear Abdomen soft less distended Incision clean dry and intact minimal pedal edema 2+ over 2+ peripheral pulses Laboratory test reviewed Continue support of electrolytes for replacement Continue overall medical support await return of bowel activity NGT out. Swallow study pending. Beer with each meal when able Continue TPN for now. Still critically ill due to sepsis and ETOH withdrawal will need ICU stay until stabilized. Try to wean sedation as able. Realistic goals and expectations discussed with patient's family. 05/09/18 13:11 05/10/18 08:52 05/11/18 11:20 Objective: Vital Signs Temp Pulse Resp BP Pulse Ox 36.2 C 108 H 23 H 153/66 H 90 L 05/11/18 08:00 05/11/18 10:32 05/11/18 10:32 05/11/18 10:00 05/11/18 10:32 Laboratory Results 05/11/18 05:30 05/11/18 05:30 05/10/18 05/11/18 05/12/18 05:59 05:59 05:59 Intake Total 2155 2459.3 Output Total 1210 1500 Balance 945 959.3 PT 16.4 SEC (12.0-15.0) H 05/08/18 05:15 INR 1.30 (0.83-1.16) H 05/08/18 05:15 ICD10 Worksheet Patient Problems: Problems Problem Status Onset Rapid atrial fibrillation Acute Volvulus Acute
[2018-05-11] MEDS: METOPROLOL TARTRATE 5 MG/5 ML INJ IVP SCH ×3 (12:15→23:39)
--- NOTE | 2018-05-11 12:35 | PDINTPN ---
Bus Washer Progress Note Assessment/Plan: Assessment: 72-year-old independent woman with chronic tobacco and alcohol use, COPD, and chronic atrial fibrillation on anticoagulation admitted 05/05 with a small bowel obstruction. She was found to have a calcified abdominal mass which had entrapped a portion of the small bowel. A left lower quadrant abscess and peritonitis were present. Status post SBO with bowel perforation, LLQ abscess, drainage and surgical repair. On Unasyn. Surgical issues per Dr. Edwards. Supraventricular tachycardia: History of chronic atrial fibrillation and SVT. Not getting oral medications secondary to abdominal surgery. On diltiazem drip and low-dose metoprolol. Hypotension: Multifactorial. Off Levophed. Hypertensive now. Adding p.r.n. Enalapril. 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 Ongoing tobacco abuse. Diffuse wheezes consistent with exacerbation. On inhaled therapies and steroids. Cannot rule out early pneumonia at left base but changes quite minimal currently. Associated hypoxemia is present. On a simple mask or cannula at 2 L. Alcohol withdrawal. History of alcohol abuse: 6 pack per day or more? On CIWA but somewhat off std protocol. Currently on Precedex per my instructions as this has less sedative affects on respiration. Ativan can be used at decreased doses. Dilaudid in decreased doses remains on MAR for pain. AMS: The above medications have resulted in significant obtundation. With these medications pCO2 has increased into the 50s. However, when more awake she is confused, agitated, and hallucinating. The latter appears to be secondary to alcohol withdrawal as well as toxic metabolic issues associated with her current illness. Acute blood-loss anemia: Hemoglobin stable at 8 today. Received 1 unit of PRBCs 05/07. CBC today. Anticoagulation: Came in on Eliquis. Currently on hold. Prophylactic enoxaparin started. GI prophylaxis: On famotidine. Nutrition: On TPN. Will place a gastric feeding tube today and start trickle feeds. If tolerated, possibly DC TPN tomorrow night. Advanced directives: Do not resuscitate per her recent previous wishes. This was discussed with the patient's sister as well. Plan: Continue full supportive care in the intensive care unit. Continue modified CIWA. Decrease Precedex as tolerated to allow the patient to wake up more. Decrease scheduled Ativan to 0.5 mg Q 8 hr. Continue antibiotics, bronchodilator therapies, O2 and IV steroids. Continue IV diltiazem, add low- dose metoprolol for AFib. Enalapril p.r.n. for hypertension. Please feeding tube today, start trickle feeds. Possibly DC TPN tomorrow night. Surgical issues per Dr. Edwards/Paulo. Follow laboratory, CBC, ABG and chest x-ray as indicated. 40 min of critical care time spent directly with the patient today. Discussed with the patient's son-in-law and friend, nursing, respiratory, and the ICU multi disciplinary team. Subjective: Somnolent, weakly arousable. On Precedex at 0.2. Objective: Vital Signs Temp Pulse Resp BP Pulse Ox 36.7 C 110 H 20 160/86 H 89 L 05/11/18 12:00 05/11/18 12:15 05/11/18 12:00 05/11/18 12:15 05/11/18 12:00 Laboratory Results 05/11/18 05:30 05/11/18 05:30 05/10/18 05/11/18 05/12/18 05:59 05:59 05:59 Intake Total 2155 2459.3 Output Total 1210 1500 Balance 945 959.3 PT 16.4 SEC (12.0-15.0) H 05/08/18 05:15 INR 1.30 (0.83-1.16) H 05/08/18 05:15 Laboratory Tests 05/10/18 05/11/18 05/11/18 15:35 05:30 11:44 pCO2 54 H pO2 88 H ABG pH 7.34 L ABG O2 Saturation 97 H Total O2 Concentration 2.0 Potassium 4.1 POC Glucose 188 H Magnesium 1.9 Physical Exam - Physical Exam General Appearance: obtunded (Somnolent, arouses weakly.), thin, No alert EENT: PERRL/EOMI, other (Getting a neb treatment) Neck: normal inspection (No obvious JVD) Respiratory: decreased breath sounds, rhonchi (Secretions at the level of the larynx. No distal rhonchi heard today), wheezing (End expiratory wheezes present), prolonged expiration Cardiac/Chest: tachycardia, irregularly irregular (Atrial fibrillation, 110) Abdomen: non-tender, soft, other (JPs in place), No normal bowel sounds Pelvic Exam: other (Moraes catheter: Adequate urine output) Skin: warm/dry, pallor, other (Chronic skin changes) Extremities: pedal edema (Trace +) Neuro/Psych: no motor/sensory deficits (Moves all extremities equally. Weak), cognition abnormalities (Somnolent currently) ICD10 Worksheet Patient Problems: Problems Problem Status Onset Volvulus Acute Rapid atrial fibrillation Acute
[2018-05-11] MEDS ORDERED: LIDOCAINE 2% JELLY 20 ML (UROJECT) UR ONE (13:00)
[2018-05-11] MEDS ORDERED: NALOXONE HCL 0.4 MG/ML INJ ONE (19:39)
[2018-05-11] MEDS ORDERED: LORazepam 2 MG/ML INJ IVP SCH (20:00)
[2018-05-11] MEDS ORDERED: NALOXONE HCL 0.4 MG/ML INJ IVP ONE (20:15)
[2018-05-11] MEDS ORDERED: FLUMAZENIL 0.5 MG/5 ML MDV IVP ONE (20:15)
--- NOTE | 2018-05-11 20:36 | PDCONSULT ---
Liquid Yeast Supervisor Note: Called to see patient secondary to decreased mental status. PCO2 up significantly, to approximately 115. PH 7.08. Placed on BiPAP with improvement in the blood gas. PCO2 now at approximately 75. No response to Narcan or Romazicon. She remains obtunded, perhaps tries to open eyes weakly with sternal stimulation. On BiPAP the chest is much clearer. No rhonchi at this time, no significant wheezes with BiPAP support. She remains in atrial fibrillation, approximately 115. Chest x-ray is unchanged from earlier, to slightly better. Patient is do not resuscitate. Family is at bedside. I do not expect her to survive the hospitalization at this point. In retrospect, the surgery is probably too much for her and she has been declining slowly, now fully decompensated from a respiratory standpoint. Her family is requesting a Hospice consult. I put this in for the morning. They would very much like to have her transported to home tomorrow on BiPAP and allow her to pass away at home. We will continue BiPAP support tonight and try to help the family with these arrangements in the morning if she survives. Discussed with Dr. Bates, Nursing, Respiratory. 45 min critical care time spent directly with the patient.
[2018-05-11] MEDS: AMITRIPTYLINE HCL 10 MG TAB PO SCH (20:56)
[2018-05-11] MEDS: TPN W/ FAMOTIDINE 1 EA BAG IV SCH (20:56)
[2018-05-12] MEDS: INSULIN REGULAR, HUMAN 100 UNIT/1 ML VIAL STANDARD SC SCH ×3 (01:22→12:40)
[2018-05-12] MEDS: LEVALBUTEROL 1.25 MG/3 ML DEYVIAL IH SCH ×2 (04:49→11:57)
[2018-05-12] MEDS: IPRATROPIUM BROMIDE 0.5 MG/2.5 ML DEYVIAL IH SCH ×2 (04:49→11:57)
[2018-05-12] MEDS: AMPICILLIN/SULBACTAM 3 GM in NS 100 ML IV SCH ×2 (05:35→12:17)
[2018-05-12] MEDS: METOPROLOL TARTRATE 5 MG/5 ML INJ IVP SCH ×2 (05:36→12:59)
[2018-05-12 05:53] LABS: PLATELET COUNT 295 10^3/uL (150-400)
[2018-05-12 06:02] LABS: INR 1.06 (0.83-1.16)
--- NOTE | 2018-05-12 08:46 | PDINTPN ---
Health Professor Progress Note Assessment/Plan: Assessment/plan: * 72-year-old independent woman with chronic tobacco and alcohol use, COPD, and chronic atrial fibrillation on anticoagulation admitted 05/05 with a small bowel obstruction. She was found to have a calcified abdominal mass which had entrapped a portion of the small bowel. A left lower quadrant abscess and peritonitis were present. * Status post SBO with bowel perforation, LLQ abscess, drainage and surgical repair. On Unasyn. Surgical issues per Dr. Edwards. * Supraventricular tachycardia: History of chronic atrial fibrillation and SVT. Not getting oral medications secondary to abdominal surgery. On diltiazem drip and low-dose metoprolol. * Hypotension: Multifactorial. Off Levophed. Hypertensive now. Adding p.r.n. Enalapril. * COPD, likely severe. Ongoing tobacco abuse. Diffuse wheezes consistent with exacerbation. On inhaled therapies and steroids. Cannot rule out early pneumonia at left base but changes quite minimal currently. Associated hypoxemia is present. On a simple mask or cannula at 2 L. * Alcohol withdrawal. History of alcohol abuse: 6 pack per day or more? On CIWA but somewhat off std protocol. Currently on Precedex per my instructions as this has less sedative affects on respiration. Ativan can be used at decreased doses. Dilaudid in decreased doses remains on MAR for pain. * AMS: The above medications have resulted in significant obtundation. With these medications pCO2 has increased into the 50s. However, when more awake she is confused, agitated, and hallucinating. The latter appears to be secondary to alcohol withdrawal as well as toxic metabolic issues associated with her current illness. * Acute blood-loss anemia: Hemoglobin stable at 8 today. Received 1 unit of PRBCs 05/07. CBC today. * Anticoagulation: Came in on Eliquis. Currently on hold. Prophylactic enoxaparin started. * GI prophylaxis: On famotidine. * Nutrition: On TPN. Will place a gastric feeding tube today and start trickle feeds. If tolerated, possibly DC TPN tomorrow night. * Advanced directives: Do not resuscitate per her recent previous wishes. This was discussed with the patient's sister as well. * Disposition-will attempt to arrange transportation home a on either BiPAP or CPAP with comfort care thereafter. -will consult hospice Subjective: Obtunded Objective: Vital Signs Temp Pulse Resp BP Pulse Ox 36.0 C 108 H 23 H 137/70 H 100 05/12/18 08:00 05/12/18 08:00 05/12/18 08:00 05/12/18 08:00 05/12/18 08:00 Laboratory Results 05/12/18 05:30 05/12/18 05:30 05/11/18 05/12/18 05/13/18 05:59 05:59 05:59 Intake Total 2459.3 3842 Output Total 1500 1400 120 Balance 959.3 2442 -120 PT 14.0 SEC (12.0-15.0) 05/12/18 05:30 INR 1.06 (0.83-1.16) 05/12/18 05:30 Laboratory Results 05/12/18 05:30 05/12/18 05:30 05/12/18 05/12/18 05/11/18 05:30 05:30 19:10 Patient Temperature 37.0 DEGREES DEGREES pCO2 78 mmHg H* mmHg (34 - 38) pO2 92 mmHg H mmHg (65 - 75) Total CO2 33 mEq/L H mEq/L (23 - 27) ABG pH 7.21 L (7.35 - 7.45) ABG PO2/FiO2 Ratio 230 RATIO RATIO ABG HCO3 30 mEq/L H mEq/L (22 - 26) ABG O2 Saturation 96 % H % (92 - 95) ABG Base Excess 1.7 mEq/L mEq/L (-2.5 - 2.5) VBG pH 7.28 L (7.31 - 7.42) VBG HCO3 31 mEQ/L H mEQ/L (22 - 26) VBG Total CO2 33 mEq/L H mEq/L (21 - 27) VBG O2 Saturation 98 % H % (65 - 75) VBG Base Excess 4.1 mEq/L H mEq/L (-2.5 - 2.5) Mixed VBG pCO2 69 mmHg H mmHg (40 - 44) Mixed VBG pO2 101 mmHG H mmHG (35 - 40) Calcium 8.7 mg/dL mg/dL (8.5 - 10.4) Phosphorus 2.8 mg/dL mg/dL (2.5 - 4.5) Magnesium 1.9 mg/dL mg/dL (1.6 - 2.3) Total Bilirubin 0.2 mg/dL mg/dL (0.1 - 1.4) AST 23 IU/L IU/L (14 - 46) ALT 43 IU/L IU/L (9 - 52) Alkaline Phosphatase 44 IU/L IU/L (38 - 126) Total Protein 4.9 g/dL L g/dL (6.3 - 8.2) Albumin 2.3 g/dL L g/dL (3.5 - 5.0) Triglycerides 83 mg/dL mg/dL (35 - 135) - Time Spent With Patient Time Spent With Patient: 35 min of time spent with patient, over 1/2 involved with coordination of care or counseling. Case discussed with Respiratory therapy, nursing and family Physical Exam - Physical Exam General Appearance: cachetic, No alert EENT: PERRL/EOMI Neck: non-tender Respiratory: respiratory distress, prolonged expiration, No wheezing Cardiac/Chest: normal peripheral pulses, regular rate, rhythm Abdomen: normal bowel sounds, non-tender, soft Pelvic Exam: deferred Rectal: deferred Back: Normal inspection Skin: normal color, warm/dry Extremities: non-tender Neuro/Psych: No alert ICD10 Worksheet Patient Problems: Problems Problem Status Onset Rapid atrial fibrillation Acute Volvulus Acute
[2018-05-12] MEDS: NICOTINE 21 MG/24 HR PATCH TD SCH (08:58)
[2018-05-12] MEDS: methylPREDNISolone SOD SUCC 40 MG/ML VIAL IVP SCH (08:58)
[2018-05-12] MEDS: ENOXAPARIN 40 MG/0.4 ML SYR SC SCH (08:58)
[2018-05-12] MEDS: DILTIAZEM HCL/D5W 125 ML IV SCH (09:00)
--- NOTE | 2018-05-12 10:32 | SOAPPROG ---
SOAP Progress Note Assessment/Plan: Assessment/Plan: POD#5 s/p exlap enterectomy, pelvic abscess drainage and mass removal Better night. On precedex and benzos for etoh withdrawal Ecoli and Strep in cultures flores sensitive. On unasyn day 5/. Afib in 120-140 PICC LUE. TPN ongoing increased leucocytosis 72-year-old patient with a history of alcohol and tobacco dependence presented with ovarian mass abscess with small-bowel obstruction secondary to the mass. 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 The patient has short gut and has lost weight with failure to thrive since that time. Since surgery she has required treatment of alcohol withdrawal, atrial fibrillation on diltiazem and been on vasopressor medication for intermittent hypotension. Last night she got Dilaudid for increase in CIWA scale currently the patient is stable. Discussion was held with her sister. Irregular rate and rhythm Rhonchi from upper airways. chest clear Abdomen soft less distended Incision clean dry and intact minimal pedal edema 2+ over 2+ peripheral pulses Laboratory test reviewed ABG last night showed respiratory acidosis treated with BiPAP. Patient is slightly uncomfortable from this. Her wishes are to go home. This has been communicated between the patient and her family and the hospital staff. Hospice care has been initiated. Will attempt to arrange transfer home on BiPAP which. On arrival at her house. All questions were addressed. 05/09/18 13:11 05/10/18 08:52 05/11/18 11:20 05/12/18 10:31 Objective: Vital Signs Temp Pulse Resp BP Pulse Ox 36.0 C 129 H 25 H 149/74 H 99 05/12/18 08:00 05/12/18 10:00 05/12/18 10:00 05/12/18 10:00 05/12/18 10:00 Laboratory Results 05/12/18 05:30 05/12/18 05:30 05/11/18 05/12/18 05/13/18 05:59 05:59 05:59 Intake Total 2459.3 3842 Output Total 1500 1400 120 Balance 959.3 2442 -120 PT 14.0 SEC (12.0-15.0) 05/12/18 05:30 INR 1.06 (0.83-1.16) 05/12/18 05:30 ICD10 Worksheet Patient Problems: Problems Problem Status Onset Rapid atrial fibrillation Acute Volvulus Acute
--- NOTE | 2018-05-12 13:04 | PDIAF ---
- Diagnosis Diagnosis: Pertioneal abscess /bowel obstruction Code Status: Do Not Resuscitate - Medication Management Discharge Medications: Medications to Continue on Transfer Budesonide [Entocort EC] 3 mg PO DAILY 09/21/13 [Last Taken 09/03/17] Hydroxychloroquine Sulfate [Plaquenil 200 mg (*)] 200 mg PO DAILY 09/21/13 [ Last Taken 09/03/17] Lisinopril [Zestril 10 mg (*)] 10 mg PO DAILY 09/21/13 [Last Taken 09/02/17] Calcium Carbonate [Oyster Shell Calcium 500 mg (*)] 500 mg PO DAILY 12/12/14 [ Last Taken 12/09/14] Cholecalciferol Vit D3 [Vitamin D3 (*)] 2,000 units PO DAILY 12/12/14 [Last Taken 12/08/14] Acetaminophen [Tylenol ES 500 mg (*)] 500 mg PO QID PRN 09/03/17 [Last Taken Unknown] Albuterol [Proventil Neb] 3 ml IH TID 09/03/17 [Last Taken Unknown] Foracort 200 2 puffs IH BID 09/03/17 [Last Taken Unknown] Levosalbutamol 50mcg 1 puffs IH BID 09/03/17 [Last Taken Unknown] Tiotropium Inhaler [Spiriva Inhaler (RX)] 1 inh IH DAILY 09/03/17 [Last Taken ] guaiFENesin [Mucinex 600 MG (*)] 600 mg PO BID 09/03/17 [Last Taken 09/03/17] Apixaban [Eliquis] 5 mg PO BID #60 tab 09/04/17 [Last Taken Unknown] Diltiazem HCl [Cardizem Cd] 120 mg PO DAILY #30 cap.er.24h 09/04/17 [Last Taken Unknown] Amitriptyline HCl [Elavil 10 mg (*)] 10 mg PO HS 05/06/18 [Last Taken Unknown] Ipratropium 0.06% Nasal [Atrovent 0.06% Nasal] 2 sprays EACHNARE QID 05/06/18 [ Last Taken Unknown] Loperamide HCl [Imodium 2 mg (*)] 2 mg PO QID PRN 05/06/18 [Last Taken Unknown] Vitamin B Complex [Vitamin B Complex (OTC)] 1 each PO DAILY 05/06/18 [Last Taken Unknown] LORazepam [Lorazepam Intensol] 0.5 mg PO Q4 PRN #30 ml 05/12/18 [Last Taken Unknown] morphINE [Roxanol 10 mg/0.5 ml oral soln (*)] 5 - 10 mg PO Q1 PRN #100 btl 05/12 [Last Taken Unknown] Discharge Medications: Refer to the Discharge Home Medication list for PRN reason. - Orders Services needed: Master Treadle Cut Off Saw Operator Oxygen: Pt family does not want cpap,bipap or high flow oxygen at home Diet Recommendation: no restrictions on diet Diet Texture: Regular Texture Diet - Follow Up Care Current Providers and Referrals: Olamide Dalton MD [Primary Care Provider] -
--- NOTE | 2018-05-12 13:22 | ASDISCHSUM ---
Discharge Information Plan Status:Hospice-Home Medically Cleared to Leave:05/12/2018 Discharge Date:05/12/2018 CM D/C Disposition:Hospice Home ADT D/C Disposition:Hospice Home Projected Discharge Date:05/12/2018 11:00 AM Transportation at D/C:ALS/BLS Discharge Delay Reason: Follow-Up Date:05/12/2018 11:00 AM Discharge Slot: Final Diagnosis:Bowel obstruction Placement Information Referral Type:*Hospice Referral ID:[id number] Provider Name:[facility] Address 1:[address] Phone Number: Address 2: Fax Number: City:[place] Selection Factors: State:[place] Patient Contact Information Contact Name:MARCIAL Relationship:Sister Address: City:[facility] Phone: [facility] Code:[place] Email: Financial Information Financial Class:Medicare Advantage Plans Primary Plan Desc:[facility] [employer] Primary Plan Number:[id number] Secondary Plan Desc: Secondary Plan Number: Assessment Information LACE LACE Length of stay for Answers: 4-6 days current admission Acuity / Level of Answers: Yes Care: Did the patient have an inpatient admission? Comorbidities - select Answers: Chronic pulmonary disease all that apply Other Notes: HTN; AFib # of Emergency department Answers: 1-2 visits in the last 6 months Score: 11 Date Signed: 05/12/2018 01:21 PM Electronically Signed By:Dayanara Soliz RN [facility] CM Progress Note CM Note CM Note Notes: 72yr old female admitted for bowel obs. 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 She is a smoker and drinks a 6 pack/day. Patient had sm bowel repair, drainage pelvic, abscess, ventral hernia repair. Therapies to eval. CM to follow. Date Signed: 05/06/2018 04:02 PM Electronically Signed By:Mana Marie LCSW [facility] CM Progress Note CM Note CM Note Notes: Patient's sister brought in her Adv Directives and they are in her chart. Date Signed: 05/07/2018 12:30 PM Electronically Signed By:Mana Marie LCSW [facility] CM Progress Note CM Note CM Note Notes: A family meeting was held today and in attendance were, Karen Roque, patient's sister and Maya SIMMONS Karen's daughter and patient's niece, Alfa, Maya's fiance, Chaplain Rasta, Dr. Snyder and myself MARVA Hernandez, case hardener.Overall patient's family is satisfied with the care patient is getting. They describe patient as funny and entertaining but also stubborn with a clear decision she is not going to stop drinking and smoking. Maya states patient drinks much more than a 6 pack per day, usually starting at 11:00 AM and continuing all day into the night. Maya states she is chronically dehydrated. Karen and Maya had questions regarding how long withdrawal would take. Dr. Snyder joined the meeting and stated she was going to need more time and there wasn't a clear date for when patient would be through withdrawals. Maya has concerns that patient will want to leave the hospital as soon she is thinking clearly again. Maya states she and her mother, Karen can provide 24 hour care for patient at d/c.They think she would be most amenable to home health care. They would be interested in [facility], which will serve the [facility] area. However, D/C plan is still TBD. If patient goes to SNF rehab it will have to be a facility comfortable with letting the patient have alcohol like [facility]. Per the family, patient is highly unlikely to agree to SNF rehab but would most likely cooperate with home health care. The family was informed of the process for getting another family meeting set up if they need to. CM will follow. Date Signed: 05/09/2018 04:52 PM Electronically Signed By:Mary uHmphrey LCSW Case Management Discharge Plan Note Case Management Discharge Discharge Order Complete? Answers: Yes Patient to Obtain Answers: Other Notes: [facility] to provide meds Medications at home Transportation Arranged Answers: Other Notes: [facility] stretcher transpor t arranged by [facility] Transport will Pick (Date 05/12/2018 02:30 PM & Time) Case Management Transport Answers: Yes Form Complete Faxed Final Orders Answers: Yes Notes: to [facility] Agency/Facility Transfer Answers: Yes Notes: to [facility] Report Printed & Faxed to Receiving Agency Family Notified Answers: Yes Notes: in room Discharge Comments Notes: 05/12/2018 Case Management Note Met with family to discuss hospice options. Family met with [facility] and [facility], chose [facility]. Faxed final orders. [facility] arranged transport with [facility]. Pt to transport with BIPAP that will be discontinued once pt is at home per family wishes. RN provided report to [facility]. Date Signed: 05/12/2018 01:21 PM Electronically Signed By:Dayanara Soliz RN Intervention Information
[2018-05-12 14:11] VITALS: BP 138/58
--- NOTE | 2018-05-12 23:33 | GDS ---
[f rep st] DISCHARGE SUMMARY REASON FOR ADMISSION: Peritonitis. HOSPITAL COURSE: 72-year-old female with a significant history for alcohol and tobacco abuse, admitted with a 1-week history of progressive abdominal pain and findings consistent with a small-bowel obstruction. She underwent urgent laparotomy given a white count of 33,000 with heightened concerns for bowel ischemia. She was found to have a small bowel obstruction secondary to a necrotic calcified abdominal mass with extensive left lower quadrant and pelvic abscess. She underwent surgical drainage of her abscess with small bowel resection. Her postoperative course was notable for respiratory failure and hypotension. Her blood pressure was initially managed with ongoing pressor therapy as well as management of her atrial fibrillation. She continued to have progressive hypoxic respiratory failure requiring BiPAP administration. The patient's neurologic status only marginally improved throughout her postoperative course. Per patient's advanced directives and extensive discussions with the family, she had requested that her care be resumed under the auspices of hospice management in the comfort of her own home. She verbalized these desires with me prior to intervention during this hospitalization, as well as in past interactions. This occurred without incident on the afternoon of the . All family questions were entertained, and prior to leaving, followups will be arranged on an as-needed basis should further questions arise. /[id number]/MODL MTDD
== END 2018-05-12 15:30 | disposition hospice, home (50) | DRG 329 ==
LOC: EEVIPCON 23:27 → F2N 05-06 00:02
PROVIDERS: ADMIT Surgery; ATTEND Surgery
PROC: 30283B1 Transfusion of Nonautologous 4-Factor Prothrombin Complex Concentrate into Vein, Percutaneous Approach (ICD-10-PCS; 2018-05-05)
PROC: 02HV33Z Insertion of Infusion Device into Superior Vena Cava, Percutaneous Approach (ICD-10-PCS; 2018-05-06)
PROC: 02HV33Z Insertion of Infusion Device into Superior Vena Cava, Percutaneous Approach (ICD-10-PCS; 2018-05-07)
PROC: 30233N1 Transfusion of Nonautologous Red Blood Cells into Peripheral Vein, Percutaneous Approach (ICD-10-PCS; 2018-05-07)
PROC: 0UB10ZX Excision of Left Ovary, Open Approach, Diagnostic (ICD-10-PCS; principal; 2018-05-09)
PROC: 0DNW0ZZ Release Peritoneum, Open Approach (ICD-10-PCS; principal; 2018-05-09)
PROC: 0DB80ZZ Excision of Small Intestine, Open Approach (ICD-10-PCS; principal; 2018-05-09)
PROC: 0WQF0ZZ Repair Abdominal Wall, Open Approach (ICD-10-PCS; principal; 2018-05-09)
PROC: 0W9J0ZX Drainage of Pelvic Cavity, Open Approach, Diagnostic (ICD-10-PCS; principal; 2018-05-09)
PROC: 0DH67UZ Insertion of Feeding Device into Stomach, Via Natural or Artificial Opening (ICD-10-PCS; 2018-05-12)
DX: K65.1 Peritoneal abscess (principal); K43.7 Other and unspecified ventral hernia with gangrene; K56.50 Intestinal adhesions [bands], unspecified as to partial versus complete obstruction; K55.021 Focal (segmental) acute infarction of small intestine; A41.9 Sepsis, unspecified organism; D62 Acute posthemorrhagic anemia; J96.91 Respiratory failure, unspecified with hypoxia; D68.32 Hemorrhagic disorder due to extrinsic circulating anticoagulants; T45.7X5A Adverse effect of anticoagulant antagonists, vitamin K and other coagulants, initial encounter; E87.1 Hypo-osmolality and hyponatremia; N17.9 Acute kidney failure, unspecified; E87.5 Hyperkalemia; R41.82 Altered mental status, unspecified; J44.1 Chronic obstructive pulmonary disease with (acute) exacerbation; I47.1 Supraventricular tachycardia; I48.2 Chronic atrial fibrillation; B95.5 Unspecified streptococcus as the cause of diseases classified elsewhere; B96.20 Unspecified Escherichia coli [E. coli] as the cause of diseases classified elsewhere; I10 Essential (primary) hypertension; F17.210 Nicotine dependence, cigarettes, uncomplicated; F10.239 Alcohol dependence with withdrawal, unspecified; Z79.01 Long term (current) use of anticoagulants; Z66 Do not resuscitate
CPT/HCPCS: 96374; 97162-GP; 97166-GO; 97530-GO; 97530-GP; 97535-GO; C1751; C9132; G8978-GP-CL; G8979-GP-CI; G8987-GO-CL; G8988-GO-CI; J0282; J0295; J0330; J0694; J1160; J1170; J1650; J1815; J2060; J2310; J2370; J2405; J2543; J2550; J2704; J2920; J3010; J3411; J3475; J7613; P9016; P9041